=== PATIENT | male | born 1980 | race Caucasian/White ===

== ENCOUNTER → 2023-04-12 09:06 | Outpatient (CLI) | payer OTHER, SELFPAY ==
--- NOTE | 2023-04-12 09:57 | CA_ITS ---
APPROVED REPORT Exam: Exercise Treadmill Technologist: Merary Mills, Ht: 6 ft 1 in Wt: 246 lbs BSA: 2.35 m2 HR: 83 bpm BP: 142/98 mmHg Rhythm: NSR Medical History Medications: Lisinopril,,,,, Stress Test Details Test: Marlon HR Resting HR: 113 bpm Max Heart Rate (APMHR): 175 bpm Max HR Achieved: 158 bpm Target HR (85% APMHR): 149 bpm % of APMHR: 90 Recovery HR: 112 bpm HR response to stress: Normal HR response to stress BP Resting BP: 153.0/103.0 mmHg Max BP: 188.0/88.0 mmHg Recovery BP: 151.0/101.0 mmHg BP response to stress: Normal blood pressure response to stress. ECG Resting ECG: NSR, no ST changes Stress ECG: No change Arrhythmia: PVCs Recovery ECG: No change Recovery Arrhythmia: None Clinical Exercise duration: 05:35 min Highest Stage Achieved: II Exercise capacity: 7.0 METs Overall Exercise Capacity for Age: Poor Stress ECG Conclusion The patient was able to exercise for a total of 5:35 on Marlon Protocol. He has a poor exercise capacity compared to age and sex matched peers. He has a normal HR and BP response to exercise. Max HR: 158 % of PM: 90% Max BP: 188/88 METs: 7.0 Test stopped due to: SOA Symptoms: No CP. Arrhythmias/Ectopy: Rare PVC. ST-T Changes: Normal ST response to exercise. Conclusion: Poor exercise capacity. Normal HR and BP response to exercise. Normal exercise stress test. GXT only (no imaging) Test Summary REST . . . . . . . Sitting REST . . . . . . . Standing REST 04:05 0.0 0.0 113 . 153/103 . . Stage 1 01:00 10.0 1.7 133 . . . . Stage 1 02:00 10.0 1.7 142 . . . . Stage 1 03:00 10.0 1.7 142 . 184/ 90 . . Stage 2 01:00 12.0 2.5 152 . . . . Stage 2 02:00 12.0 2.5 156 . 188/ 88 . . Stage 2 02:35 12.0 2.5 158 . 188/ 88 . Stop exercise at 05:35 RECOVERY 01:00 0.0 0.0 153 . . . . RECOVERY 02:00 0.0 0.0 131 . 161/ 94 . . RECOVERY 03:00 0.0 0.0 120 . 161/ 94 . . RECOVERY 04:00 0.0 0.0 115 . 173/ 89 . . RECOVERY 05:00 0.0 0.0 112 . 151/101 . . RECOVERY 05:19 0.0 0.0 105 . 151/101 . . Electronically signed by : Maryann Boggs, 04/14/2023 17:53:02
== END ==
PROVIDERS: PCP Nurse Practitioner Family; Visit Provider Nurse Practitioner
DX: R06.00 Dyspnea, unspecified (principal); R07.9 Chest pain, unspecified; I10 Essential (primary) hypertension; Z72.0 Tobacco use; Z82.49 Family history of ischemic heart disease and other diseases of the circulatory system
CPT/HCPCS: 93017

== ENCOUNTER → 2023-04-17 12:31 | Outpatient (CLI) | payer OTHER, SELFPAY ==
--- NOTE | 2023-04-17 12:43 | CA_ITS ---
APPROVED REPORT EXAM: Comprehensive 2D, Doppler, and color-flow Echocardiogram [employer] Vault Custodian: Desiree Cotton RVT Ht: 6 ft 0 in Wt: 246lbs BSA: 2.33 BP: 135/91 mmHg Indications: SOA,CP,HTN,SMOKER 2D Dimensions LVOT 2.18 cm (M/F) 1.5-2.5 LA Volume 43.50 mL LA Volume Index 18.67 mL/m2 (M/F) 16-34 M-Mode Dimensions RVDd 1.93 cm (0.9-2.6) LA Diam 2.94 cm (1.9-4.0) LVDd 3.26 cm (3.5-5.7) Ao Diam 2.91 cm (2.0-3.7) LVDs 2.25 cm (3.5-5.7) IVSd 0.86 cm (0.6-1.1) PWd 0.50 cm (0.6-1.1) EF (Teich) 60.00% FS 31.00% EDV (Teich) 42.80 mL TAPSE 2.30 (<1.7) ESV (Teich) 17.10 mL LV Diastology E Decel Time 150.00 (160-240 msec) E/A Ratio 0.6 MED E' 7.60 (< 7 cm/sec) E'/MED E' Ratio 6.25 (>14) LAT E' 11.60 (<10 cm/sec) E/LAT E' Ratio 4.09 (>14) Aortic Valve AO Peak GR. 3.00 mmHg Mitral Valve MV E Max Kaden. 47.00 (40-130 cm/s) MV A Velocity 78.00 (40-130 cm/s) E/A Ratio 0.61 MV Decel. Time 150.00 (160-240 ms) MV PHT 44.00 ms Pulmonary Valve PV Peak Velocity 91.00 (50-150 cm/s) Left Ventricle The left ventricle is normal size. The left ventricular systolic function is normal. The left ventricular ejection fraction is within the normal range. There is increased LV wall thickness. There is mild hypokinesis of the basal anteroseptal LV wall. The left ventricular diastolic function is normal. LVEF is 50-55%. Right Ventricle The right ventricle is normal size. The right ventricular systolic function is normal. Atria The left atrium size is normal. The right atrium size is normal. There is no Doppler evidence of interatrial shunt. Aortic Valve The aortic valve opens well. There is no aortic valvular stenosis. Trace aortic regurgitation. Mitral Valve The mitral valve is normal in structure. No evidence of mitral valve stenosis. There is trace mitral valve regurgitation noted. Tricuspid Valve The tricuspid valve leaflets are thin and pliable. Trace tricuspid regurgitation. RVSP is normal. Pulmonic Valve The pulmonary valve is normal in structure. Trace pulmonic regurgitation. Great Vessels The aortic root is normal in size. IVC is normal in size and collapses >50% with inspiration. Pericardium There is no pericardial effusion. Other Information Study Quality: Adequate Conclusion Normal biventricular systolic function. No significant valvular disease. Electronically signed by : Maryann Boggs, 04/17/2023 19:19:16
== END ==
PROVIDERS: PCP Nurse Practitioner Family; Visit Provider Nurse Practitioner
DX: R06.00 Dyspnea, unspecified (principal); R07.9 Chest pain, unspecified; I10 Essential (primary) hypertension; Z72.0 Tobacco use; Z82.49 Family history of ischemic heart disease and other diseases of the circulatory system
CPT/HCPCS: 93306

== ENCOUNTER → 2023-07-24 15:02 | Outpatient (CLI) | payer OTHER, SELFPAY ==
[2023-07-24 15:38] LABS: Basophils # 0.1 K/mm3 (0-0.2); Basophils % 0.6 % (0.1-2.0); Eosinophils # 0.7 K/mm3 (0.0-0.4); Hematocrit 44.6 % (42.0-52.0); Hemoglobin 15.2 g/dL (14.1-18.0); Lymphocytes # 3.1 K/mm3 (0.7-4.5); Lymphocytes % 27.7 % (10-50); Mean Corpuscular HGB Conc 34.2 g/dL (31.8-35.4); Mean Corpuscular Hemoglobin 31.1 pg (27.0-31.2); Mean Corpuscular Volume 90.9 fl (80-94); Mean Platelet Volume 8.1 fl (7.4-10.4); Monocytes # 0.6 K/mm3 (0.1-1.0); Monocytes % 5.3 % (1.7-9.3); Neutrophils # 6.7 K/mm3 (1.8-7.8); Neutrophils % 60.4 % (37.0-80.0); Platelet Count 291 K/mm3 (142-424); Red Blood Count 4.91 M/mm3 (4.60-6.20)
[2023-07-24 15:58] LABS: Albumin Level 4.4 g/dl (3.5-5.0); Blood Urea Nitrogen 13 mg/dl (9-20); Carbon Dioxide 27 mmol/L (22.0-30.0); Chloride 102 mmol/L (98-107); Estimated Glomerular Filt Rate 51 ml/min (>60); GFR (African American) 61 ML/MIN (>60); Glucose 96 mg/dl (74-100); Phosphorous 3.9 mg/dl (2.5-4.5); Sodium 139 mmol/L (136-145)
[2023-07-24 16:09] LABS: 25-OH Vitamin D, Total 31.6 ng/mL (30-100)
[2023-07-24 16:11] LABS: Intact Parathyroid Hormone 90.8 pg/mL (7.5-53.5)
[2023-07-24 16:14] LABS: Creatinine,Urine Random 70 mg/dL (Not Estab.)
== END ==
PROVIDERS: PCP Nurse Practitioner Family; Visit Provider Internal Medicine Nephrology
DX: N17.9 Acute kidney failure, unspecified (principal); E55.9 Vitamin D deficiency, unspecified; Z68.33 Body mass index [BMI] 33.0-33.9, adult
CPT/HCPCS: 36415; 80069; 82306; 82570; 83970; 84155; 85025

== ENCOUNTER → 2023-08-21 12:59 | Outpatient (CLI) | payer OTHER, SELFPAY ==
--- NOTE | 2023-08-21 13:08 | XR_ITS ---
FINAL REPORT CLINICAL HISTORY: Shortness of breath COMPARISON: None FINDINGS: Two views of the chest were obtained. The heart size and pulmonary vascularity are within normal limits. The mediastinum is normal. No acute pulmonary abnormality is identified. There are multiple calcified granulomas. There is no pneumothorax. The bony thorax is intact. IMPRESSION: No active cardiopulmonary disease. Reviewed, Interpreted and Dictated by Michael White III, MD Transcribed by Gianna Donnelly Authenticated and . [facility]
== END ==
PROVIDERS: PCP Nurse Practitioner Family; Visit Provider Nurse Practitioner Family
DX: R06.00 Dyspnea, unspecified (principal)
CPT/HCPCS: 71046

== ENCOUNTER 2023-12-16 13:01 | Outpatient (CLI) | payer OTHER, SELFPAY ==
[2023-12-16 13:47] LABS: Creatinine,Urine Random 102 mg/dL (Not Estab.)
[2023-12-16 14:02] LABS: Albumin Level 4.1 g/dl (3.5-5.0); Anion Gap 10.3 mEq/L (5-15); Blood Urea Nitrogen 18 mg/dl (9-20); Calcium 9.4 mg/dl (8.4-10.2); Carbon Dioxide 28 mmol/L (22.0-30.0); Chloride 106 mmol/L (98-107); Estimated Glomerular Filt Rate 51 ml/min (>60); GFR (African American) 61 ML/MIN (>60); Glucose 100 mg/dl (74-100); Phosphorous 4.4 mg/dl (2.5-4.5); Potassium 4.3 mmoL/L (3.5-5.1); Sodium 140 mmol/L (136-145)
== END 2023-12-16 23:59 ==
LOC: LAB 13:02
PROVIDERS: PCP Nurse Practitioner Family; Visit Provider Internal Medicine Nephrology
DX: N17.9 Acute kidney failure, unspecified (principal)
CPT/HCPCS: 36415; 80069; 82570

== ENCOUNTER 2023-12-19 15:59 | Outpatient (POV) | payer OTHER, SELFPAY | END 2023-12-19 23:59 | disposition home or self-care (01) | LOC: SC 15:59 | PROVIDERS: Visit Provider Internal Medicine Nephrology | DX: Z00.00 Encounter for general adult medical examination without abnormal findings (principal) ==

== ENCOUNTER 2023-12-27 09:56 | Outpatient (CLI) | payer OTHER, SELFPAY ==
--- NOTE | 2023-12-27 10:05 | XR_ITS ---
FINAL REPORT CLINICAL HISTORY: SOB smoker COMPARISON: 08/21/2023 FINDINGS: TWO-VIEW CHEST The heart size is normal. The mediastinum is normal. Left lung base nodules appear to have central calcification consistent with granulomas. There is no pneumothorax. IMPRESSION: Stable left lung nodules, likely granulomas. Reviewed, Interpreted and Dictated by Michael White III, MD Transcribed by Nathalie Kruse Authenticated and [facility]
== END 2023-12-27 23:59 ==
PROVIDERS: PCP Nurse Practitioner Family; Visit Provider Internal Medicine Pulmonary Disease
DX: R06.02 Shortness of breath (principal)
CPT/HCPCS: 71046

== ENCOUNTER 2024-08-31 08:14 | Outpatient (CLI) | payer OTHER, SELFPAY ==
[2024-08-31 09:07] LABS: Chloride 102 mmol/L (98-107); Potassium 4.1 mmoL/L (3.5-5.1); Sodium 133 mmol/L (136-145)
[2024-08-31 09:10] LABS: Anion Gap 6.1 mEq/L (5-15); Blood Urea Nitrogen 20 mg/dl (9-20); Calcium 9.3 mg/dl (8.4-10.2); Carbon Dioxide 29 mmol/L (22.0-30.0); Estimated Glomerular Filt Rate 47 ml/min (>60); GFR (African American) 57 ML/MIN (>60); Glucose 119 mg/dl (74-100); Phosphorous 4.2 mg/dl (2.5-4.5)
[2024-08-31 09:20] LABS: Creatinine,Urine Random 170 mg/dL (Not Estab.)
[2024-09-01 10:30] LABS: Microscopic, Urine URINE MICROSCOPIC (MICROSCOPIC)
[2024-09-01 10:38] LABS: Hematocrit 47.7 % (42.0-52.0); Hemoglobin 15.4 g/dL (14.1-18.0); Mean Corpuscular HGB Conc 32.2 g/dL (31.8-35.4); Mean Corpuscular Hemoglobin 30.1 pg (27.0-31.2); Mean Corpuscular Volume 93.4 fl (80-94); Platelet Count 382 K/mm3 (142-424); Red Blood Count 5.11 M/mm3 (4.60-6.20); Red Cell Distribution Width 13.9 % (11.5-17.5)
[2024-09-01 10:40] LABS: Appearance,Urine CLEAR (Clear); Bilirubin,Urine Negative (Negative); Blood, Urine TRACE-I (Negative); Color,Urine YELLOW (Yellow); Glucose,Urine (UA) Negative (Negative); Ketones,Urine Negative (Negative); Leukocyte Esterase,Urine Negative (Negative); Nitrate,Urine Negative (Negative); Protein,Urine 1+ (Negative); Urobilinogen,Urine 0.2 EU/dl (0.2)
[2024-09-01 11:05] LABS: Bacteria,Urine Trace /lpf; Squamous Epithelial Cell,Urine Occasional #/hpf (0-5); WBC,Urine Occasional #/hpf (0-3)
== END 2024-08-31 23:59 | disposition home or self-care (01) ==
PROVIDERS: PCP Nurse Practitioner Family; Visit Provider Internal Medicine Nephrology
DX: N18.30 Chronic kidney disease, stage 3 unspecified (principal)
CPT/HCPCS: 36415; 80069; 81001; 82570; 84156; 85027

== ENCOUNTER 2025-07-15 05:33 | Emergency (ER) | payer OTHER, SELFPAY ==
[2025-07-15] VITALS (11 sets, daily range): BP systolic 122–188; BP diastolic 67–109; PULSE 79–101; RESP 12–18; TEMP 36.5–36.7; O2SAT 97–100; BMI 35.2
--- OUTSIDE RECORDS SUMMARY | 2025-07-15 05:42 | XMS_ITS | Clinical Summary ---
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 Active lisinopril 20 MG tabletIndication s:Stage 3 chronic kidney disease, unspecified whether stage 3a or 3b CKD (CMS/HCC),Protei bolivar, unspecified type,Hypertensiv e chronic kidney disease with stage 1 through stage 4 chronic kidney disease, or unspecified chronic kidney disease Take 1 tablet (20 mg) by mouth 1 (one) time each day. 90 tablet 3 Active Active Problems Problem Noted Date Diagnosed Date Severe obesity (BMI 35.0-39.9) with comorbidity 09/04/2024 Chronic kidney disease-mineral and bone disorder (CKD-MBD) 09/04/2024 Stage 3 chronic kidney disease 09/04/2024 Hypertensive chronic kidney disease with stage 1 through stage 4 chronic kidney disease, or unspecified chronic kidney disease 09/04/2024 Arthritis 07/29/2023 Gout 07/29/2023 Hypertension 07/29/2023 Proteinuria, unspecified 07/29/2023 Resolved Problems Problem Noted Date Diagnosed Date Resolved Date Acute kidney failure, unspecified 04/01/2023 06/06/2025 Encounters Date Type Department Care Team Description 07/02/2025 Travel from Last 3 Months Family History Medical History Relation Name Comments Heart disease Father Hypertension Father Cancer Mother Diabetes Mother Heart disease Mother Hyperlipidemia Mother Hypertension Mother Kidney disease Mother Osteoporosis Mother Cancer Paternal Grandfather Relation Name Status Comments Father Mother Paternal Grandfather Social History Tobacco Use Types Packs/Day Years Used Date Smoking Tobacco: Every Day Cigarettes Tobacco Cessation:Ready to Q uit: Yes; Counseling Given: Yes PHQ-2 Answer Date Recorded Patient Health Questionnaire-2 Score 0 12/19/2023 Sex and Gender Information Value Date Recorded Sex Assigned at Not on file Legal Sex Male 1:32 PM EDT Gender Identity Not on file Sexual Orientation Not on file Last Filed Vital Signs Vital Sign Reading Time Taken Comments Blood Pressure 162/96 09/04/2024 11:21 AM EST BP obtained twice the first attempt was 166/100 Pulse 87 09/04/2024 11:21 AM EST Temperature 36.3 C (97.4 F) 09/04/2024 11:21 AM EST Respiratory Rate 18 09/04/2024 11:2 1 AM EST Oxygen Saturation 98% 09/04/2024 11: 21 AM EST Inhaled Oxygen Concentration - - Weight 121 kg (266 lb) 09/04/2024 11:21 AM EST Height 182.9 cm (6') 09/04/2024 11:21 AM EST Body Mass Index 36.08 09/04/2024 11:21 AM EST Plan of Treatment Health Maintenance Due Date Last Done Comments [facility]-HIV Screening 1978 [facility]-Hepatitis C Screening 1978 [facility]-Infant/Child/Adol SDOH Screenings 1978 [facility]- SDOH Screenings 02/23/1996 [facility]-Adult SDOH Screenings 02/23/1996 [facility]-DTaP,Tdap,and Td Vaccine s (1 - Tdap) 1997 [facility]-Hepatitis B Vaccines (1 of 3 - 19+ 3-dose series) 1997 [facility]-Pneumococcal Vaccine: Pediatrics (0 to 5 Years) and At-Risk Patients (6 to 49 Years) (1 of 2 - PCV) 1997 CT Colonography 2023 Colonoscopy 2023 FIT-DNA 2023 FIT 2023 FOBT 2023 Sigmoidoscopy 2023 [facility]-Colorectal Cancer Screening 2023 [facility]-Depression Screening 12/18/2024 12/19/2023 [id number] Vaccine ( season) 2025 01/28/2021 [facility]-Influenza Vaccine (#1) 2025 [facility]-Zoster Vaccines (1 of 2) 02/23/2028 [facility]-Obesity Intervention Completed 024, 12/19/2023, 07/29/2023 HPV Vaccines Aged Out No longer eligi ble based on patient's age to complete this topic [facility]-HIB Vaccines Aged Out No longer e ligible based on patient's age to complete this topic [facility]-Hepatitis A Vaccines Aged Out No longer eligible based on patient's age to complete this topic [facility]-IPV Vaccines Aged Out No longer e ligible based on patient's age to complete this topic [facility]-Rotavirus Vaccines Aged Out No lo nger eligible based on patient's age to complete this topic Insurance [facility] MEDICAID Care Teams Brewery Cellar Worker Relationship Specialty Start Date End Date Pcp, [place] [address] PCP - General Family Medicine 06/30/23
--- OUTSIDE RECORDS SUMMARY | 2025-07-15 05:42 | XMS_ITS | Encounter Summary ---
Author Organization Healthcare Address [address] [place] [address] Care Team Providers Care High Speed Operator Name Role Phone Pcp, No Primary Care Provider Unavailabl e Encounter Details Date Type Department Care Team (Latest Contact Info) Description 07/02/2025 Travel Social History Tobacco Use Types Packs/Day Years Used Date Smoking Tobacco: Every Day Cigarettes PHQ-2 Answer Date Recorded Patient Health Questionnaire-2 Score 0 12/19/2023 Sex and Gender Information Value Date Recorded Sex Assigned at Not on file Legal Sex Male 1:32 PM EDT Gender Identity Not on file Sexual Orientation Not on file documented as of this encounter Plan of Treatment Not on file documented as of this encounter Visit Diagnoses Not on filedocumented in this encounter Additional Health Concerns Assessment Noted Time A fall risk assessment has been complete d for the patient 12/19/2023 3:48 PM EDT A Body Mass Index follow-up plan has been documented for the patient 09/04/2024 12:52 PM EST documented as of this encounter Care Teams High Speed Operator Relationship Specialty Start Date End Date Pcp, [place] [address] PCP - General Family Medicine 06/30/23 documented as of this encounter
--- NOTE | 2025-07-15 05:44 | ECG_ITS ---
APPROVED REPORT Exam: Resting ECG HR:90 bpm ECG Measurements Heart Rate 90 AXES OR 188 P 66 QRSd 96 QRS 30 QT 340 T 39 QTc 388 Conclusion SINUS RHYTHM NONSPECIFIC T-WAVE ABNORMALITY No STEMI Electronically signed by : BRENDON SONG, 07/17/2025 06:19:37
--- NOTE | 2025-07-15 05:54 | XR_ITS ---
PROCEDURE INFORMATION: Exam: XR Chest Exam date and time: 07/15/2025 5:51 AM Age: 45 years old Clinical indication: Shortness of breath; Additional info: SOA, orthopnea TECHNIQUE: Imaging protocol: Radiologic exam of the chest. Views: 2 views. COMPARISON: CR XR CHEST 2V 12/27/2023 10:12 AM FINDINGS: Lungs: No lobar consolidation. Left lower lung field calcified granulomata. Pleural spaces: No pleural thickening or pneumothorax. Heart/Mediastinum: Cardiac silhouette not enlarged. Bones/joints: Unremarkable. IMPRESSION: No acute findings.
[2025-07-15 06:02] LABS: Lactate Venous 2.0 mmol/L (0.4-2.0); VBG HCO3 23.9 mmol/L (23-30); VBG PCO2 51.5 mmol/L (35-51); VBG PH 7.28 mmol/L (7.31-7.41); VBG PO2 26.4 mmol/L (28-40)
--- NOTE | 2025-07-15 06:02 | ED_ITS ---
Discharge Plan Disposition Patient Disposition: Home, Self-Care Prescriptions Prescriptions: New azithromycin 250 mg tablet See Rx Instructions .ROUTE .COMPLEX Qty: 6 0RF Rx Instructions: For 250 mg dose pack: take 500 mg today (day 1), then 250 mg for 4 days (days 2-5) prednisone 20 mg tablet 40 mg PO DAILY 5 Days Qty: 10 0RF No Action lisinopril 10 mg tablet 10 mg PO DAILY buprenorphine-naloxone [Suboxone] 8-2 mg film 1 film buccal DAILY albuterol sulfate [Ventolin HFA] 90 mcg/actuation HFA aerosol inhaler 2 puff inhalation Q4-6H PRN albuterol sulfate 90 mcg/actuation HFA aerosol inhaler 2 inh inhalation QID PRN (Reason: shortness of breath or wheezing) 90 Days Qty: 8.5 2RF Referrals Follow up/Referrals: Provider,Referral, [Primary Care Provider, Medical] - See instructions Activity Restrictions/Add. Instructions Additional Instructions/Restrictions: I encourage you to follow up with Dr. Camejo, the tire mounter you have seen previously, regarding your shortness of breath. Use the albuterol inhaler as directed. You are being prescribed a short course of steroids as well as a Z- Ector. Take these as prescribed. I do encourage you to follow-up with your primary care doctor as your kidney function is slightly worse than previous and they would likely need to do follow-up labs. If you develop any new or worsening symptoms, or if you become concerned for your health for any reason, return to the emergency department for evaluation. Clinical Impressions Clinical Impression: Shortness of breath Print Language Print Language: Martiniquais Discharge ED Provider: Jcarlos Estrella HPI <Jcarlos Estrella MD - Last Filed: 07/15/25 06:52> General Chief Complaint: Shortness of Breath/Dyspnea Stated Complaint: trouble breathing laying down, history of pluracy Time Seen by Provider: 07/15/25 05:54 Mode of Arrival: Ambulatory Source of Information: Patient Description of Symptoms (Recalled from ER Triage Doc. by RN): PT presents tot he ED for evaluation of SOB. Stated he woke up from sleep sob admin his inhaler and walked around, took a drive went back home and laid [place]. PT stated he became SOB when laying down. PT denies a hx of COPD. Stated he has been congested for a little bit. History of Present Illness HPI narrative: 45-year-old male with history of smoking who states he occasionally uses an inhaler and reportedly had pleurisy once in the past presents to the ER for complaints of shortness of breath. Patient reports he woke up approximately 3- 1/2 hours prior to arrival from sleep with shortness of breath. He states he used his inhaler (albuterol) and walked around, took a drive, and went back and lay down. He states he was feeling well until he laid back down and the shortness of breath was worse again when he laid down. He does not have any swelling in the feet or legs, he reports chest discomfort but not pain or pressure. He states he had pleurisy a couple years ago and that the breathing sensation feels similar but he does not particularly have pain which he thinks he had when he had pleurisy in the past. He has no fevers or chills, no vomiting or diarrhea, he states the last few days he has had increased nasal and sinus congestion as well as productive cough and is taking Mucinex for this. Family cardiac history. Besides albuterol the only other medication he takes is Suboxone. No other complaints or concerns Related Data Home Medications ?Medication ?Instructions ?Recorded ?Confirmed lisinopril 10 mg tablet 10 mg PO DAILY 04/03/2312/15 albuterol sulfate 90 mcg/actuation 2 puff inhalation Q 4-6H PRN 10/18/23 12/27/23 aerosol inhaler (Ventolin HFA) buprenorphine 8 mg-naloxone 2 mg 1 film buccal DAILY 0 10/18/23 12/27/23 sublingual film (Suboxone) Previous Rx's ?Medication ?Instructions ?Recorded albuterol sulfate 90 mcg/actuation 2 inh inhalation QI D PRN shortness 10/18/23 aerosol inhaler of breath or wheezing 90 day s #8.5 grams azithromycin 250 mg tablet See Rx Instructions PO .COM PLEX #6 07/15/25 tabs prednisone 20 mg tablet 40 mg (2 x 20 mg) PO DAILY 5 days 07/15/25 #10 tabs Allergies Allergy/AdvReac Type Severity Reaction Status Date / Time Penicillins Allergy Intermediate Vomiting Verified 12/27/23 11:12 [facility] <Jcarlos Estrella MD - Last Filed: 07/15/25 06:52> [facility] Disclaimer: The information contained in this section may have been updated after the patient was seen, as this information can be updated by other users. Medical History Dyspnea on exertion Smoking greater than 30 pack years HTN (hypertension) Tobacco use Family history of ischemic heart disease Dyspnea Chest pain Surgical History No history of previous surgery Family History Mother Diabetes Hypertension Heart attack Father Hypertension Social History Smoking Status: Current every day smoker tobacco type: cigarettes packs per day: 1 alcohol intake: never current occupational status: employed Travel in the last 8 weeks?: None Have you lived/traveled outside US in past 30 days?: No Contact w/someone who lives/traveled outside US past 30 days?: No Exposure to someone with infectious disease in past 14 days?: No Do you have a fever (greater than 100.4 F or 38 C)?: No Have you tested positive for COVID-19?: No Exposed to someone with COVID-19 in past 14 days?: No Do you have a sore throat?: No Do you have a cough?: No Do you have any weakness?: No Do you have any diarrhea?: No Are you experiencing any unusual bleeding?: No Do you have any muscle aches/pain?: No Do you have any abdominal pain?: No Are you experiencing loss of taste or smell?: No <Jcarlos Estrella MD - Last Filed: 07/15/25 06:52> ROS Obtained: Yes Systems reviewed as appropriate & no additional complaints except as documented Per HPI Physical Exam <Jcarlos Estrella MD - Last Filed: 07/15/25 06:52> General General appearance: alert and in no apparent distress Head Head exam: atraumatic and normocephalic Eye Eye exam: Present PERRL and EOMI ENT ENT exam: Present mucous membranes moist Neck Neck exam: Present normal inspection and full ROM Chest Chest inspection: Present symmetric chest wall rise; Absent tenderness Respiratory Respiratory exam: Present normal lung sounds bilaterally and other (95% on room air with no adventitious sounds); Absent respiratory distress, wheezes or stridor Cardiovascular Cardiovascular exam: Present regular rate and normal rhythm Abdominal Exam Abdominal exam: Present soft; Absent distention or tenderness Extremities Exam Extremities exam: Present full ROM and normal capillary refill; Absent edema Neurological Exam Neurological exam: Present alert and oriented X3; Absent motor sensory deficit Psychiatric Psychiatric exam: Present normal affect and normal mood Skin Skin exam: Present warm and dry HEART Score <Jcarlos Estrella MD - Last Filed: 07/15/25 06:52> HEART Score HEART Score assessment performed?: Yes History (anamnesis): Slightly suspicious ECG: Non-specific disturbance Age: 45-65 years Risk factors: 1-2 risk factors Troponin: </= normal limit HEART Score: 3 <Misbah Morse MD - Last Filed: 07/15/25 09:10> HEART Score HEART Score: 3 Critical Care <Jcarlos Estrella MD - Last Filed: 07/15/25 06:52> Critical Care Time Critical Care Time: No Medical Decision Making <Jcarlos Estrella MD - Last Filed: 07/15/25 06:52> Medical Records Medical records reviewed: Yes I reviewed the patient's medical records. MR Comment: Reviewed pulmonology note from December 2023 demonstrates patient refused PFT, continued to use albuterol on an as needed basis a few times a month and continued to smoke. Plan was for follow-up in 6 months because patient still had complaints of dyspnea on exertion but it appears patient was lost to follow-up. Kermit Inquiry Pt receiving controlled substance: No Vital Signs Vital Signs: 07/15/25 05:43 07/15/25 05:48 07/15/25 05:51 Temperature 97.7 F 97.7 F Temperature Source Oral Pulse Rate 90 Pulse Rate [Right] 101 H Respiratory Rate 16 16 Blood Pressure 156/109 H Blood Pressure [Right Arm] 188/107 H Blood Pressure Mean [Right Arm] 134 02 Sat by Pulse Oximetry 99 97 99 Oxygen Delivery Method Room Air Room Air Room Air 07/15/25 06:00 07/15/25 06:31 07/15/25 06:50 Temperature Temperature Source Pulse Rate 91 H 79 81 Pulse Rate [Right] Respiratory Rate 15 17 Blood Pressure 169/95 H 139/87 139/87 Blood Pressure [Right Arm] Blood Pressure Mean [Right Arm] 02 Sat by Pulse Oximetry 98 97 99 Oxygen Delivery Method Aerosol Mask 07/15/25 07:01 07/15/25 07:30 07/15/25 08:00 Temperature Temperature Source Pulse Rate 80 93 H 85 Pulse Rate [Right] Respiratory Rate 14 16 12 Blood Pressure 147/77 H 123/76 130/67 Blood Pressure [Right Arm] Blood Pressure Mean [Right Arm] 02 Sat by Pulse Oximetry 100 100 100 Oxygen Delivery Method 07/15/25 08:30 Temperature Temperature Source Pulse Rate 84 Pulse Rate [Right] Respiratory Rate 13 Blood Pressure 122/72 Blood Pressure [Right Arm] Blood Pressure Mean [Right Arm] 02 Sat by Pulse Oximetry 97 Oxygen Delivery Method Lab Data Labs: Lab Results 07/15/25 05:41: WBC 10.7, RBC 5.14, Hgb 15.3, Hct 45.6, MCV 88.7, MCH 29.8, MCHC 33.6, RDW 13.8, Plt Count 357, MPV 9.1, Neut % (Auto) 68.0, Lymph % (Auto) 23.3, [place] % (Auto) 5.6, Eos % (Auto) 1.5, Baso % (Auto) 0.5, Neut # (Auto) 7.3, Lymph # (Auto) 2.5, [place] # (Auto) 0.6, Eos # (Auto) 0.2, Baso # (Auto) 0.1, PT 10.5, INR 0.94, D-Dimer 0.79 H, Sodium 138, Potassium 3.7, Chloride 103, Carbon Dioxide 26, Anion Gap 12.7, BUN 23 H, Creatinine 1.70 H, Estimated Creat Clear 90, Estimated GFR 43 L, Est GFR ( Amer) 53 L, Glucose 129 H, Calcium 9.3, Total Bilirubin 0.2, AST 29, ALT 21, Alkaline Phosphatase 104, Troponin I < 0.01, NT-Pro-B Natriuret Pep < 20.0, Total Protein 8.4 H, Albumin 3.8, Globulin 4.6 H, Albumin/Globulin Ratio 0.8 L, HCV Ab JAYANT w/Rflx PCR Qn Negative, HIV Ag/Ab Combo Qual Negative 07/15/25 05:57: VBG pH 7.28 L, VBG pCO2 51.5 H, VBG pO2 26.4 L, VBG HCO3 23.9, VBG Total CO2 25.5, VBG O2 Saturation 45.4 L, VBG Base Excess -2.8 L, VBG Lactic Acid 2.0 07/15/25 05:59: SARS-CoV-2 (PCR) Not detected, Influenza A Untype (PCR) Not detected, Influenza Type B (PCR) Not detected 07/15/25 08:23: Troponin I < 0.01 07/15/25 05:41 07/15/25 05:41 Response Orders (Tests/Meds): ED MEDICATIONS Generic Name Dose Route Start Last Admin Trade Name Freq PRN Reason Stop Dose Admin Albuterol Sulfate 2 puff 07/15/25 07:58 Albuterol-Hfa 90mcg/Puff Inhaler 8gm IH 08/14/25 07:57 Q4HP PRN Shortness Of Breath Discontinued Medications Generic Name Dose Route Start Last Admin Trade Name Freq PRN Reason Stop Dose Admin Albuterol/Ipratropium 9 ml 07/15/25 06:20 07/15/25 06:48 Ipratropium/Albuterol 3 Ml Neb IH 07/15/25 06:21 9 ml ONCE ONE Administration Aspirin 324 mg 07/15/25 05:54 07/15/25 06:08 Aspirin 81mg Chewable Tablet PO 07/15/25 05:55 324 mg ONCE ONE Administration Miscellaneous 1 unit 07/15/25 07:58 Aerochamber/Optihaler MC 07/15/25 07:59 ONCE ONE ORDERS Category Date Time Status XR chest 2V Stat Exams 07/15/25 05:54 Completed Complete Blood Count Auto Diff Stat Lab 07/15/25 05:41 Completed Comprehensive Metabolic Panel Stat Lab 07/15/25 05:41 Completed D-Dimer Stat Lab 07/15/25 05:41 Completed HIV Combo Stat Lab 07/15/25 05:41 Completed Hepatitis C Ab Qual. W/ RFX Stat Lab 07/15/25 05:41 Completed NT Pro Brain Natriuretic Pep. Stat Lab 07/15/25 05:41 Completed Prothrombin Time INR Stat Lab 07/15/25 05:41 Completed Rapid PCR Covid and Flu A/B Stat Lab 07/15/25 05:59 Completed Troponin I Q3H Lab 07/15/25 08:23 Completed Troponin I Q3H Lab 07/15/25 12:00 Ordered Troponin I Stat Lab 07/15/25 05:41 Completed Venous Blood Gas Stat RT 07/15/25 05:57 Completed MDM Narrative Medical Decision Narrative: In summary, this 45-year-old male with comorbidities and social determinants of health as described in the HPI presents to the emergency department today with cough, shortness of breath, orthopnea. On initial evaluation patient is tachycardic when I walked in the room but heart rate resolved to 87 during my exam, hemodynamically stable, afebrile, lungs are clear bilaterally with no adventitious sounds saturating 95% on room air, no chest wall tenderness, no evidence of trauma, cardiopulmonary exam overall is benign with no peripheral edema, abdominal exam benign, remainder of exam reassuring. Differential diagnosis includes but is not limited to COPD/exacerbation, bronchitis, pneumonia, I considered ACS, volume overload, PE. Patient is not PERC negative since he was initially tachycardic so D-dimer was ordered. I also considered viral syndrome, pleural effusion, among others. Based on these concerns, I ordered hematologic and serum labs, cardiac workup, D-dimer, chest x-ray, VBG. ECG personally interpreted demonstrates normal sinus rhythm, rate 90, normal axis, normal AK and QTc, no STEMI. Patient received aspirin initially for treatment. Labs personally reviewed demonstrate normal CBC, PT/INR normal, VBG with pH 7.28, mild hypercarbia, normal lactic. With these findings DuoNebs administered. BNP undetectable, troponin undetectable less than 0.01, CMP demonstrates normal electrolytes, kidney function pending at the time of physician handoff. D-dimer 0.79 by years criteria PE excluded. XR personally interpreted demonstrates no lobar infiltrate, patient appears to have 2 small nodules which have previously been present, see radiology read for final interpretation. Patient handed off to Dr. Morse in stable condition pending serial troponin, kidney function labs, reassessment after nebulizer treatments. <Misbah Morse MD - Last Filed: 07/15/25 09:10> Vital Signs Vital Signs: 07/15/25 05:43 07/15/25 05:48 07/15/25 05:51 Temperature 97.7 F 97.7 F Temperature Source Oral Pulse Rate 90 Pulse Rate [Right] 101 H Respiratory Rate 16 16 Blood Pressure 156/109 H Blood Pressure [Right Arm] 188/107 H Blood Pressure Mean [Right Arm] 134 02 Sat by Pulse Oximetry 99 97 99 Oxygen Delivery Method Room Air Room Air Room Air 07/15/25 06:00 07/15/25 06:31 07/15/25 06:50 Temperature Temperature Source Pulse Rate 91 H 79 81 Pulse Rate [Right] Respiratory Rate 15 17 Blood Pressure 169/95 H 139/87 139/87 Blood Pressure [Right Arm] Blood Pressure Mean [Right Arm] 02 Sat by Pulse Oximetry 98 97 99 Oxygen Delivery Method Aerosol Mask 07/15/25 07:01 07/15/25 07:30 07/15/25 08:00 Temperature Temperature Source Pulse Rate 80 93 H 85 Pulse Rate [Right] Respiratory Rate 14 16 12 Blood Pressure 147/77 H 123/76 130/67 Blood Pressure [Right Arm] Blood Pressure Mean [Right Arm] 02 Sat by Pulse Oximetry 100 100 100 Oxygen Delivery Method 07/15/25 08:30 Temperature Temperature Source Pulse Rate 84 Pulse Rate [Right] Respiratory Rate 13 Blood Pressure 122/72 Blood Pressure [Right Arm] Blood Pressure Mean [Right Arm] 02 Sat by Pulse Oximetry 97 Oxygen Delivery Method Lab Data Labs: Lab Results 07/15/25 05:41: WBC 10.7, RBC 5.14, Hgb 15.3, Hct 45.6, MCV 88.7, MCH 29.8, MCHC 33.6, RDW 13.8, Plt Count 357, MPV 9.1, Neut % (Auto) 68.0, Lymph % (Auto) 23.3, [place] % (Auto) 5.6, Eos % (Auto) 1.5, Baso % (Auto) 0.5, Neut # (Auto) 7.3, Lymph # (Auto) 2.5, [place] # (Auto) 0.6, Eos # (Auto) 0.2, Baso # (Auto) 0.1, PT 10.5, INR 0.94, D-Dimer 0.79 H, Sodium 138, Potassium 3.7, Chloride 103, Carbon Dioxide 26, Anion Gap 12.7, BUN 23 H, Creatinine 1.70 H, Estimated Creat Clear 90, Estimated GFR 43 L, Est GFR ( Amer) 53 L, Glucose 129 H, Calcium 9.3, Total Bilirubin 0.2, AST 29, ALT 21, Alkaline Phosphatase 104, Troponin I < 0.01, NT-Pro-B Natriuret Pep < 20.0, Total Protein 8.4 H, Albumin 3.8, Globulin 4.6 H, Albumin/Globulin Ratio 0.8 L, HCV Ab JAYANT w/Rflx PCR Qn Negative, HIV Ag/Ab Combo Qual Negative 07/15/25 05:57: VBG pH 7.28 L, VBG pCO2 51.5 H, VBG pO2 26.4 L, VBG HCO3 23.9, VBG Total CO2 25.5, VBG O2 Saturation 45.4 L, VBG Base Excess -2.8 L, VBG Lactic Acid 2.0 07/15/25 05:59: SARS-CoV-2 (PCR) Not detected, Influenza A Untype (PCR) Not detected, Influenza Type B (PCR) Not detected 07/15/25 08:23: Troponin I < 0.01 Response Orders (Tests/Meds): ED MEDICATIONS Generic Name Dose Route Start Last Admin Trade Name Freq PRN Reason Stop Dose Admin Albuterol Sulfate 2 puff 07/15/25 07:58 Albuterol-Hfa 90mcg/Puff Inhaler 8gm IH 08/14/25 07:57 Q4HP PRN Shortness Of Breath Discontinued Medications Generic Name Dose Route Start Last Admin Trade Name Freq PRN Reason Stop Dose Admin Albuterol/Ipratropium 9 ml 07/15/25 06:20 07/15/25 06:48 Ipratropium/Albuterol 3 Ml Neb IH 07/15/25 06:21 9 ml ONCE ONE Administration Aspirin 324 mg 07/15/25 05:54 07/15/25 06:08 Aspirin 81mg Chewable Tablet PO 07/15/25 05:55 324 mg ONCE ONE Administration Miscellaneous 1 unit 07/15/25 07:58 Aerochamber/Optihaler MC 07/15/25 07:59 ONCE ONE ORDERS Category Date Time Status XR chest 2V Stat Exams 07/15/25 05:54 Completed Complete Blood Count Auto Diff Stat Lab 07/15/25 05:41 Completed Comprehensive Metabolic Panel Stat Lab 07/15/25 05:41 Completed D-Dimer Stat Lab 07/15/25 05:41 Completed HIV Combo Stat Lab 07/15/25 05:41 Completed Hepatitis C Ab Qual. W/ RFX Stat Lab 07/15/25 05:41 Completed NT Pro Brain Natriuretic Pep. Stat Lab 07/15/25 05:41 Completed Prothrombin Time INR Stat Lab 07/15/25 05:41 Completed Rapid PCR Covid and Flu A/B Stat Lab 07/15/25 05:59 Completed Troponin I Q3H Lab 07/15/25 08:23 Completed Troponin I Q3H Lab 07/15/25 12:00 Ordered Troponin I Stat Lab 07/15/25 05:41 Completed Venous Blood Gas Stat RT 07/15/25 05:57 Completed MDM Narrative Medical Decision Narrative: In summary, this 45-year-old male with comorbidities and social determinants of health as described in the HPI presents to the emergency department today with cough, shortness of breath, orthopnea. On initial evaluation patient is tachycardic when I walked in the room but heart rate resolved to 87 during my exam, hemodynamically stable, afebrile, lungs are clear bilaterally with no adventitious sounds saturating 95% on room air, no chest wall tenderness, no evidence of trauma, cardiopulmonary exam overall is benign with no peripheral edema, abdominal exam benign, remainder of exam reassuring. Differential diagnosis includes but is not limited to COPD/exacerbation, bronchitis, pneumonia, I considered ACS, volume overload, PE. Patient is not PERC negative since he was initially tachycardic so D-dimer was ordered. I also considered viral syndrome, pleural effusion, among others. Based on these concerns, I ordered hematologic and serum labs, cardiac workup, D-dimer, chest x-ray, VBG. ECG personally interpreted demonstrates normal sinus rhythm, rate 90, normal axis, normal AK and QTc, no STEMI. Patient received aspirin initially for treatment. Labs personally reviewed demonstrate normal CBC, PT/INR normal, VBG with pH 7.28, mild hypercarbia, normal lactic. With these findings DuoNebs administered. BNP undetectable, troponin undetectable less than 0.01, CMP demonstrates normal electrolytes, kidney function pending at the time of physician handoff. D-dimer 0.79 by years criteria PE excluded. XR personally interpreted demonstrates no lobar infiltrate, patient appears to have 2 small nodules which have previously been present, see radiology read for final interpretation. Patient handed off to Dr. Morse in stable condition pending serial troponin, kidney function labs, reassessment after nebulizer treatments. Misbah Morse MD At the time my assumption of care, plan was to follow-up serial troponins, renal function testing and reassessment after nebulizer treatments Ultimately, patient's workup showed creatinine of 1.7, which is mildly above his baseline of 1.5. Initial troponin less than 0.01. EKG interpreted by me personally shows no ST elevation or depression and normal sinus rhythm. Chest x-ray was interpreted by me personally. Patient does have granulomata noted on AP and lateral x-rays, however these appear chronic. No focal consolidations or other acute findings. Patient receiving breathing treatment at the time of my arrival. On reassessment, patient has had improvement of his symptoms. Will prescribe albuterol MDI inhaler for him to take home. Will also prescribe course of steroids and azithromycin for increased productive cough. Repeat troponin also negative. Will also recommend follow-up with Dr. Camejo, whom the patient has seen previously. Return precautions were given. All questions were answered. He demonstrated understanding and was in agreement with this plan. He was then discharged from the emergency department in stable condition.
--- NOTE | 2025-07-15 06:02 | PC.NURSE ---
Contacted respiratory r/t VBG sent to lab.
[2025-07-15 06:04] LABS: Hematocrit 45.6 % (42.0-52.0); Hemoglobin 15.3 g/dL (14.1-18.0); Immature Granulocytes % 1.1 %; Mean Corpuscular HGB Conc 33.6 g/dL (31.8-35.4); Mean Corpuscular Hemoglobin 29.8 pg (27.0-31.2); Mean Corpuscular Volume 88.7 fl (80-94); Nucleated Red Blood Cells % 0 %; Platelet Count 357 K/mm3 (142-424); Red Blood Count 5.14 M/mm3 (4.60-6.20); Red Cell Distribution Width-SD 44.8 fL; White Blood Count 10.7 K/mm3 (4.8-10.8)
[2025-07-15 06:05] LABS: Coronavirus 19, PCR Not Detected (NotDetected); Influenza A, PCR Not Detected (NotDetected); Influenza B, PCR Not Detected (NotDetected)
[2025-07-15 06:05] LABS: Chloride 103 mmol/L (98-107)
[2025-07-15 06:06] LABS: Albumin Level 3.8 g/dl (3.5-5.0); Potassium 3.7 mmoL/L (3.5-5.1); Sodium 138 mmol/L (136-145)
[2025-07-15] MEDS: ASPIRIN 81MG CHEWABLE TABLET 324 MG PO (06:08)
[2025-07-15 06:09] LABS: Alanine Aminotransferase 21 U/L (12-78); Albumin/Globulin Ratio 0.8 (1.1-1.8); Alkaline Phosphatase 104 U/L (38-126); Anion Gap 12.7 mEq/L (5-15); Aspartate Amino Transferase 29 U/L (17-59); Bilirubin,Total 0.2 mg/dl (0.2-1.3); Calcium 9.3 mg/dl (8.4-10.2); Carbon Dioxide 26 mmol/L (22.0-30.0); Globulin 4.6 g/dL (1.3-3.2); Glucose 129 mg/dl (74-100); Total Protein,Serum 8.4 g/dl (6.3-8.2)
[2025-07-15 06:11] LABS: INR 0.94 (0.9-1.1); Prothrombin Time 10.5 seconds (10.1-12.5)
[2025-07-15 06:19] LABS: NT Pro Brain Natriuretic Pep. < 20.0 pg/mL (0-125)
[2025-07-15 06:21] LABS: Troponin I < 0.01 ng/ml (0.00-0.034)
[2025-07-15 06:23] LABS: D-Dimer 0.79 ug/mL (0.0-0.5)
[2025-07-15 06:48] LABS: Blood Urea Nitrogen 23 mg/dl (9-20); Creatinine Clearance Estimated 90 mL/min (50-200); Creatinine,Serum 1.70 mg/dl (0.66-1.25); Estimated Glomerular Filt Rate 43 ml/min (>60); GFR (African American) 53 ML/MIN (>60)
[2025-07-15] MEDS: IPRATROPIUM/ALBUTEROL 3 ML NEB 9 ML IH (06:48)
[2025-07-15 06:57] LABS: Hepatitis C Ab Qual. W/ RFX NEGATIVE (Negative)
--- NOTE | 2025-07-15 07:05 | PC.NURSE ---
pt is sitting up in bed. tolerating breathing treatment well.l denies any SOA @ this time. no chest pain.
--- NOTE | 2025-07-15 08:34 | PC.NURSE ---
call made to respiratory for d/c instructions on aerochamber and inhaler.
[2025-07-15 09:06] LABS: Troponin I < 0.01 ng/ml (0.00-0.034)
[2025-07-15] MEDS: AEROCHAMBER/OPTIHALER 1 UNIT MC (09:33)
[2025-07-15] MEDS: ALBUTEROL-HFA 90MCG/PUFF INHALER 8GM 2 PUFF IH (09:33)
== END 2025-07-15 09:42 | disposition home or self-care (01) ==
PROVIDERS: Emergency Provider Emergency Medicine
DX: R06.02 Shortness of breath (principal); R79.1 Abnormal coagulation profile; I10 Essential (primary) hypertension; Z87.891 Personal history of nicotine dependence
CPT/HCPCS: 71046; 80053; 82803; 83880; 84484; 85025; 85378; 85610; 86803; 87389; 87636; 93005; 99284; 99285

== ENCOUNTER 2025-07-25 09:57 | Emergency (ER) | payer OTHER, SELFPAY ==
[2025-07-25] VITALS (12 sets, daily range): BP systolic 121–161; BP diastolic 76–116; PULSE 73–100; RESP 12–18; TEMP 37.1; O2SAT 95–99; BMI 35.2
--- NOTE | 2025-07-25 10:05 | ECG_ITS ---
APPROVED REPORT Exam: Resting ECG HR:89 bpm ECG Measurements Heart Rate 89 AXES CA 184 P 64 QRSd 85 QRS 28 QT 338 T 13 QTc 384 Conclusion SINUS RHYTHM NORMAL ECG UNCONFIRMED REPORT Electronically signed by : SYBIL GUILLEN, 07/26/2025 02:49:16
--- OUTSIDE RECORDS SUMMARY | 2025-07-25 10:05 | XMS_ITS | Encounter Summary ---
Author Organization Healthcare Address [address] [place] [address] Care Team Providers Care Network Operations Center Technician Name Role Phone Pcp, No Primary Care [...] documented as of this encounter Care Teams Network Operations Center Technician Relationship Specialty Start Date End Date Pcp, [place] [address] PCP - General Family Medicine 06/30/23 documented as of this encounter
--- OUTSIDE RECORDS SUMMARY | 2025-07-25 10:05 | XMS_ITS | Data Portability ---
Author Organization Replaced by [facility] Address [address] [place] [address] Care Team Providers Care Weighmaster Lead Name Role Phone ALOK CASEYDEXTERElaina Primary Care Provider Assessment No assessment recorded. Plan of Treatment Reminders Order Date Submit Date Provider Last Modified By Organization Details Last Modified Time Details Appointments None recorded. Lab None recorded. Referral pulmonologi st referral 2022 023 CESAR Camejo MD, [address], [place], [address], 4 13:36:29 Procedures venipunctur e routine (PROC) 2022 023 brice Not available 3 09:40:24 Surgeries None recorded. Imaging XR, chest, 2 view 2022 023 [facility] ([facility]), [address], [place], [address], 3 15:44:45 Medication Orders dexamethaso ne sodium phosphate 4 mg/mL injection solution 2024 025 bstears Not available 5 14:16:34 prednisone 20 mg tablet 2024 025 brice [facility], [address] [place], [address], 5 13:44:17 doxycycline hyclate 100 mg capsule 2024 025 CESAR [facility], [address] [place], [address], 5 05:01:48 nicotine 21 mg/24 hr daily transdermal patch 2022 023 brice [facility], [address] [place], [address], 5 15:43:43 Zithromax Z-Ector 250 mg tablet 2022 023 [facility], [address] [place], [address], 5 15:37:17 dexamethaso ne sodium phosphate 4 mg/mL injection solution 2022 023 brice Not available 5 15:37:28 albuterol sulfate HFA 90 mcg/actuati on aerosol inhaler 2022 023 CESAR [facility], [address] [place], [address], 3 09:13:40 lisinopril 10 mg tablet 2022 023 [facility], [address] [place], [address], 5 15:43:25 Patient TargetsNo targets recorded. Patient Instructions Encounter Date Encounter Id Patient Instructions Last Modified By Organization Details Last Modified Time 08/19/2023 [id number] smoking cessatio n counseling, greater than 3 minutes up to 10 minutes efryman Not available 08/19/2023 09:13:02 Learning About Benefits of Quitting Smoking efryman Not available 08/19/2023 09:13:02 complete PFT w/ post bronchodilator spirometry* bstears Not available 10/15/2023 14:41:30 Reason for Referral Licensed Physical Therapy Assistant Referral for D yspnea Referring Physician: Shawn Rahman, Family Medicine, Encounter Date: 08/19/2023 Results Created Date Observation Date Name Description Value Unit Range Abnormal Flag Note LastModifiedBy Organization Detail LastModifiedTime 03/26/2003/27/2023 TSH+F REE T4 TSH 2.530 uIU/m L 0.450- 4.500 Not Available [facility] ([facility]) [address], [place], [address], 03/27/2023 13:07:26 03/26/20 23 03/27/2023 TSH+F REE T4 T4,free(dire ct) 1.22 NG/dL 0.82-1 .77 Not Available [facility] ([facility]) [address], [place], [address], 03/27/2023 13:07:26 03/26/20 23 03/27/2023 CBC WITH DIFFE RENTI AL/PL ATELE T WBC 9.0 x10e3 /uL 3.4-10 .8 Not Available [facility] ([facility]) [address] [place], [address], 03/27/2023 13:07:26 03/26/20 23 03/27/2023 CBC WITH DIFFE RENTI AL/PL ATELE T RBC 5.11 x10e6 /uL 4.14-5 .80 Not Available [facility] ([facility]) [address] [place], [address], 03/27/2023 13:07:26 03/26/20 23 03/27/2023 CBC WITH DIFFE RENTI AL/PL ATELE T hemoglobin 15.1 g/dL 13.0-1 7.7 Not Available [facility] ([facility]) [address] [place], [address], 03/27/2023 13:07:26 03/26/20 23 03/27/2023 CBC WITH DIFFE RENTI AL/PL ATELE T hematocrit 44.3 % 37.5-5 1.0 Not Available [facility] ([facility]) [address] [facility], [place], [address], 03/27/2023 13:07:26 03/26/20 23 03/27/2023 CBC WITH DIFFE RENTI AL/PL ATELE T MCV 87 fL 79-97 Not Available [facility] ([facility]) [address], [place], [address], 03/27/2023 13:07:26 03/26/20 23 03/27/2023 CBC WITH DIFFE RENTI AL/PL ATELE T MCH 29.5 pg 26.6-3 3.0 Not Available [facility] ([facility]) [address], [place], [address], 03/27/2023 13:07:26 03/26/20 23 03/27/2023 CBC WITH DIFFE RENTI AL/PL ATELE T MCHC 34.1 g/dL 31.5-3 5.7 Not Available [facility] ([facility]) [address], [place], [address], 03/27/2023 13:07:26 03/26/20 23 03/27/2023 CBC WITH DIFFE RENTI AL/PL ATELE T RDW 13.3 % 11.6-1 5.4 Not Available [facility] ([facility]) [address] [place], [address], 03/27/2023 13:07:26 03/26/20 23 03/27/2023 CBC WITH DIFFE RENTI AL/PL ATELE T platelets 375 x10e3 /uL 150-45 0 Not Available [facility] ([facility]) [address] [place], [address], 03/27/2023 13:07:26 03/26/20 23 03/27/2023 CBC WITH DIFFE RENTI AL/PL ATELE T neutrophils 69 % not estab. Not Available [facility] ([facility]) [address] [place], [address], 03/27/2023 13:07:26 03/26/20 23 03/27/2023 CBC WITH DIFFE RENTI AL/PL ATELE T lymphs 24 % not estab. Not Available [facility] ([facility]) [address] [facility], [place], [address], 03/27/2023 13:07:26 03/26/20 23 03/27/2023 CBC WITH DIFFE RENTI AL/PL ATELE T monocytes 6 % not estab. Not Available [facility] ([facility]) [address], [place], [address], 03/27/2023 13:07:26 03/26/20 23 03/27/2023 CBC WITH DIFFE RENTI AL/PL ATELE T eos 1 % not estab. Not Available [facility] ([facility]) [address], [place], [address], 03/27/2023 13:07:26 03/26/20 23 03/27/2023 CBC WITH DIFFE RENTI AL/PL ATELE T basos 0 % not estab. Not Available [facility] ([facility]) [address], [place], [address], 03/27/2023 13:07:26 03/26/20 23 03/27/2023 CBC WITH DIFFE RENTI AL/PL ATELE T immature cells SEWER DIGGER Not Available [facility] ([facility]) [address], [place], [address], 03/27/2023 13:07:26 03/26/20 23 03/27/2023 CBC WITH DIFFE RENTI AL/PL ATELE T neutrophils (absolute) 6.2 x10e3 /uL 1.4-7. 0 Not Available [facility] ([facility]) [address] [place], [address], 03/27/2023 13:07:26 03/26/20 23 03/27/2023 CBC WITH DIFFE RENTI AL/PL ATELE T lymphs (absolute) 2.1 x10e3 /uL 0.7-3. 1 Not Available [facility] ([facility]) [address], [place], [address], 03/27/2023 13:07:26 03/26/20 23 03/27/2023 CBC WITH DIFFE RENTI AL/PL ATELE T monocytes(ab solute) 0.5 x10e3 /uL 0.1-0. 9 Not Available [facility] ([facility]) [address], [place], [address], 03/27/2023 13:07:26 03/26/20 23 03/27/2023 CBC WITH DIFFE RENTI AL/PL ATELE T eos (absolute) 0.1 x10e3 /uL 0.0-0. 4 Not Available [facility] ([facility]) [address], [place], [address], 03/27/2023 13:07:26 03/26/20 23 03/27/2023 CBC WITH DIFFE RENTI AL/PL ATELE T baso (absolute) 0.0 x10e3 /uL 0.0-0. 2 Not Available [facility] ([facility]) [address], [place], [address], 03/27/2023 13:07:26 03/26/20 23 03/27/2023 CBC WITH DIFFE RENTI AL/PL ATELE T immature granulocytes 0 % not estab. Not Available [facility] ([facility]) [address] [place], [address], 03/27/2023 13:07:26 03/26/20 23 03/27/2023 CBC WITH DIFFE RENTI AL/PL ATELE T immature grans (abs) 0.0 x10e3 /uL 0.0-0. 1 Not Available [facility] ([facility]) [address] [place], [address], 03/27/2023 13:07:26 03/26/20 23 03/27/2023 CBC WITH DIFFE RENTI AL/PL ATELE T NRBC SEWER DIGGER Not Available [facility] ([facility]) [address], [place], [address], 03/27/2023 13:07:26 03/26/20 23 03/27/2023 CBC WITH DIFFE RENTI AL/PL ATELE T hematology comments: SEWER DIGGER Not Available [facility] ([facility]) [address], [place], [address], 03/27/2023 13:07:26 03/26/20 23 03/27/2023 COMP. METAB OLIC PANEL (14) glucose 114 mg/dL 70-99 above high normal Not Available [facility] ([facility]) [address], [place], [address], 03/27/2023 13:07:27 03/26/20 23 03/27/2023 COMP. METAB OLIC PANEL (14) BUN 20 mg/dL 6-24 Not Available [facility] ([facility]) [address], [place], [address], 03/27/2023 13:07:27 03/26/20 23 03/27/2023 COMP. METAB OLIC PANEL (14) creatinine 1.68 mg/dL 0.76-1 .27 above high normal Not Available [facility] ([facility]) [address], [place], [address], 03/27/2023 13:07:27 03/26/20 23 03/27/2023 COMP. METAB OLIC PANEL (14) eGFR 51 mL/mi n/1.7 3 >59 below low normal Not Available [facility] ([facility]) [address], [place], [address], 03/27/2023 13:07:27 03/26/20 23 03/27/2023 COMP. METAB OLIC PANEL (14) BUN/creatini ne ratio 12 9-20 Not Available [facility] ([facility]) [address] [place], [address], 03/27/2023 13:07:27 03/26/20 23 03/27/2023 COMP. METAB OLIC PANEL (14) sodium 135 mmol/ L 134-14 4 Not Available [facility] ([facility]) [address] [place], [address], 03/27/2023 13:07:27 03/26/20 23 03/27/2023 COMP. METAB OLIC PANEL (14) potassium 4.7 mmol/ L 3.5-5. 2 Not Available [facility] ([facility]) [address], [place], [address], 03/27/2023 13:07:27 03/26/20 23 03/27/2023 COMP. METAB OLIC PANEL (14) chloride 98 mmol/ L 96-106 Not Available [facility] ([facility]) [address] [place], [address], 03/27/2023 13:07:27 03/26/20 23 03/27/2023 COMP. METAB OLIC PANEL (14) carbon dioxide, total 19 mmol/ L 20-29 below low normal Not Available [facility] ([facility]) [address] [place], [address], 03/27/2023 13:07:27 03/26/20 23 03/27/2023 COMP. METAB OLIC PANEL (14) calcium 9.6 mg/dL 8.7-10 .2 Not Available [facility] ([facility]) [address] [place], [address], 03/27/2023 13:07:27 03/26/20 23 03/27/2023 COMP. METAB OLIC PANEL (14) protein, total 7.1 g/dL 6.0-8. 5 Not Available [facility] ([facility]) [address], [place], [address], 03/27/2023 13:07:27 03/26/20 23 03/27/2023 COMP. METAB OLIC PANEL (14) albumin 4.8 g/dL 4.1-5. 1 Ple ase note refer ence inter vinod jimenez e Not Available [facility] ([facility]) [address], [place], [address], 03/27/2023 13:07:27 03/26/20 23 03/27/2023 COMP. METAB OLIC PANEL (14) globulin, total 2.3 g/dL 1.5-4. 5 Not Available [facility] ([facility]) [address], [place], [address], 03/27/2023 13:07:27 03/26/20 23 03/27/2023 COMP. METAB OLIC PANEL (14) A/G ratio 2.1 1.2-2. 2 Not Available [facility] ([facility]) [address], [place], [address], 03/27/2023 13:07:27 03/26/20 23 03/27/2023 COMP. METAB OLIC PANEL (14) bilirubin, total 0.3 mg/dL 0.0-1. 2 Not Available [facility] ([facility]) [address] [place], [address], 03/27/2023 13:07:27 03/26/20 23 03/27/2023 COMP. METAB OLIC PANEL (14) alkaline phosphatase 86 IU/L 44-121 Not Available [facility] ([facility]) [address] [place] [place], [address], 03/27/2023 13:07:27 03/26/20 23 03/27/2023 COMP. METAB OLIC PANEL (14) AST (SGOT) 27 IU/L 0-40 Not Available [facility] ([facility]) [address], [place], [address], 03/27/2023 13:07:27 03/26/20 23 03/27/2023 COMP. METAB OLIC PANEL (14) ALT (SGPT) 23 IU/L 0-44 Not Available [facility] ([facility]) [address] [place], [address], 03/27/2023 13:07:27 03/26/20 23 03/27/2023 LIPID PANEL cholesterol, total 246 mg/dL 100-19 9 above high normal Not Available [facility] ([facility]) [address] [place], [address], 03/27/2023 13:07:28 03/26/20 23 03/27/2023 LIPID PANEL triglyceride s 112 mg/dL 0-149 Not Available [facility] ([facility]) [address] [place], [address], 03/27/2023 13:07:28 03/26/20 23 03/27/2023 LIPID PANEL HDL cholesterol 45 mg/dL >39 Not Available [facility] ([facility]) [address], [place], [address], 03/27/2023 13:07:28 03/26/20 23 03/27/2023 LIPID PANEL VLDL cholesterol faheem 20 mg/dL 5-40 Not Available [facility] ([facility]) [address] [place], [address], 03/27/2023 13:07:28 03/26/20 23 03/27/2023 LIPID PANEL LDL chol calc ([facility] [place]) 181 mg/dL 0-99 above high normal Not Available [facility] ([facility]) [address] [place], [address], 03/27/2023 13:07:28 03/26/20 23 03/27/2023 LIPID PANEL comment: SEWER DIGGER Not Available [facility] ([facility]) [address], [place], [address], 03/27/2023 13:07:28 03/26/20 23 03/27/2023 TROPO CAROLYN T troponin T(highly sensitive) TNP NG/L Test not perfo rmed. No plasm a speci men recei gail. REQUI RES REF PLASM A (LITH IUM HEPAR IN) In order to disti nguis h acute eleva tions of high sensi tive Tropo carolyn from other clini faheem condi tions , the Unive rsal Defin ition of myoca rdial infar ction stres ses clini faheem asses sment and the need for seria l measu remen ts to obser ve a rise and/o r fall above the upper limit of the refer ence inter vinod. Not Available [facility] ([facility]) [address], [place], [address], 03/27/2023 13:07:28 03/26/20 23 03/27/2023 AMBIG UOUS TEST ORDER ambiguous test order Commen t Test not perfo rmed. Unabl e to perfo rm test due to curre nt unava ilabi lity of reage nts or disco ntinu ation of test. Test code #1211 85 Tropo carolyn I High Sensi tivit y was made non-[place] [facility] [place] [id number] 0 Tropo carolyn T, 5th Gener ation Highl y Sensi tive Not Available [facility] ([facility]) [address] [place], [address], 03/27/2023 13:07:29 03/26/20 23 03/27/2023 SPECI MEN STATU S REPOR T specimen status report TNP Test not perfo rmed. No plasm a speci men recei gail. TEST: [id number] 0 Tropo carolyn T REQUI RES REF PLASM A (LITH IUM HEPAR IN) Not Available [facility] ([facility]) [address], [place], [address], 03/27/2023 13:07:30 04/01/20 23 04/02/2023 URINA LYSIS , COMPL ETE specific gravity 1.012 1.005- 1.030 Not Available [facility] ([facility]) [address], [place], [address], 04/02/2023 07:07:55 04/01/20 23 04/02/2023 URINA LYSIS , COMPL ETE pH 6.0 5.0-7. 5 Not Available [facility] ([facility]) [address] [place], [address], 04/02/2023 07:07:55 04/01/20 23 04/02/2023 URINA LYSIS , COMPL ETE urine-color Yellow yellow Not Available [facility] ([facility]) [address] [place], [address], 04/02/2023 07:07:55 04/01/20 23 04/02/2023 URINA LYSIS , COMPL ETE appearance Clear clear Not Available [facility] ([facility]) [address] [place], [address], 04/02/2023 07:07:55 04/01/20 23 04/02/2023 URINA LYSIS , COMPL ETE WBC esterase Negati ve negati ve Not Available [facility] ([facility]) [address] [place], [address], 04/02/2023 07:07:55 04/01/20 23 04/02/2023 URINA LYSIS , COMPL ETE protein Trace negati ve/tra ce Not Available [facility] ([facility]) [address] [place], [address], 04/02/2023 07:07:55 04/01/20 23 04/02/2023 URINA LYSIS , COMPL ETE glucose Negati ve negati ve Not Available [facility] ([facility]) [address] [place], [address], 04/02/2023 07:07:55 04/01/20 23 04/02/2023 URINA LYSIS , COMPL ETE ketones Negati ve negati ve Not Available [facility] ([facility]) [address] [facility], [place], [address], 04/02/2023 07:07:55 04/01/20 23 04/02/2023 URINA LYSIS , COMPL ETE occult blood Negati ve negati ve Not Available [facility] ([facility]) [address], [place], [address], 04/02/2023 07:07:55 04/01/20 23 04/02/2023 URINA LYSIS , COMPL ETE bilirubin Negati ve negati ve Not Available [facility] ([facility]) [address], [place], [address], 04/02/2023 07:07:55 04/01/20 23 04/02/2023 URINA LYSIS , COMPL ETE urobilinogen ,semi-qn 0.2 mg/dL 0.2-1. 0 Not Available [facility] ([facility]) [address], [place], [address], 04/02/2023 07:07:55 04/01/20 23 04/02/2023 URINA LYSIS , COMPL ETE nitrite, urine Negati ve negati ve Not Available [facility] ([facility]) [address] [facility], [place], [address], 04/02/2023 07:07:55 04/01/20 23 04/02/2023 URINA LYSIS , COMPL ETE microscopic examination Commen wade olmedo ws if indic ated. Not Available [facility] ([facility]) [address] [facility], [place], [address], 04/02/2023 07:07:55 04/01/20 23 04/02/2023 URINA LYSIS , COMPL ETE microscopic examination See below: Micro scopi c was indic ated and was perfo rmed. Not Available [facility] ([facility]) [address] [facility], [place], [address], 04/02/2023 07:07:55 04/01/20 23 04/02/2023 URINA LYSIS , COMPL ETE WBC None seen /hpf 0 - 5 Not Available [facility] ([facility]) [address] [facility], [place], [address], 04/02/2023 07:07:55 04/01/20 23 04/02/2023 URINA LYSIS , COMPL ETE RBC None seen /hpf 0 - 2 Not Available [facility] ([facility]) [address] [facility], [place], [address], 04/02/2023 07:07:55 04/01/20 23 04/02/2023 URINA LYSIS , COMPL ETE epithelial cells (non renal) None seen /hpf 0 - 10 Not Available [facility] ([facility]) [address] [facility], [place], [address], 04/02/2023 07:07:55 04/01/20 23 04/02/2023 URINA LYSIS , COMPL ETE epithelial cells (renal) SEWER DIGGER Not Available [facility] ([facility]) [address] [facility], [place], [address], 04/02/2023 07:07:55 04/01/20 23 04/02/2023 URINA LYSIS , COMPL ETE casts None seen /lpf none seen Not Available [facility] ([facility]) [address] [facility], [place], [address], 04/02/2023 07:07:55 04/01/20 23 04/02/2023 URINA LYSIS , COMPL ETE cast type SEWER DIGGER Not Available [facility] ([facility]) [address] [facility], [place], [address], 04/02/2023 07:07:55 04/01/20 23 04/02/2023 URINA LYSIS , COMPL ETE crystals SEWER DIGGER Not Available [facility] ([facility]) [address] [facility], [place], [address], 04/02/2023 07:07:55 04/01/20 23 04/02/2023 URINA LYSIS , COMPL ETE crystal type SEWER DIGGER Not Available [facility] ([facility]) [address] [facility], [place], [address], 04/02/2023 07:07:55 04/01/20 23 04/02/2023 URINA LYSIS , COMPL ETE mucus threads SEWER DIGGER Not Available [facility] ([facility]) [address] [facility], [place], [address], 04/02/2023 07:07:55 04/01/20 23 04/02/2023 URINA LYSIS , COMPL ETE bacteria None seen none seen/f ew Not Available [facility] ([facility]) [address] [facility], [place], [address], 04/02/2023 07:07:55 04/01/20 23 04/02/2023 URINA LYSIS , COMPL ETE yeast SEWER DIGGER Not Available [facility] ([facility]) [address] [facility], [place], [address], 04/02/2023 07:07:55 04/01/20 23 04/02/2023 URINA LYSIS , COMPL ETE trichomonas SEWER DIGGER Not Available [facility] ([facility]) [address] [facility], [place], [address], 04/02/2023 07:07:55 04/01/20 23 04/02/2023 URINA LYSIS , COMPL ETE comment SEWER DIGGER Not Available [facility] ([facility]) [address] [facility], [place], [address], 04/02/2023 07:07:55 04/01/20 23 04/02/2023 BASIC METAB OLIC PANEL (8) glucose 105 mg/dL 70-99 above high normal Not Available [facility] ([facility]) [address] [place], [address], 04/02/2023 07:07:55 04/01/20 23 04/02/2023 BASIC METAB OLIC PANEL (8) BUN 16 mg/dL 6-24 Not Available [facility] ([facility]) [address] [place], [address], 04/02/2023 07:07:55 04/01/20 23 04/02/2023 BASIC METAB OLIC PANEL (8) creatinine 1.47 mg/dL 0.76-1 .27 above high normal Not Available [facility] ([facility]) [address] [place], [address], 04/02/2023 07:07:55 04/01/20 23 04/02/2023 BASIC METAB OLIC PANEL (8) eGFR 60 mL/mi n/1.7 3 >59 Not Available [facility] ([facility]) [address] [place], [address], 04/02/2023 07:07:55 04/01/20 23 04/02/2023 BASIC METAB OLIC PANEL (8) BUN/creatini ne ratio 11 9-20 Not Available [facility] ([facility]) [address] [place], [address], 04/02/2023 07:07:55 04/01/20 23 04/02/2023 BASIC METAB OLIC PANEL (8) sodium 139 mmol/ L 134-14 4 Not Available [facility] ([facility]) [address] [place], [address], 04/02/2023 07:07:55 04/01/20 23 04/02/2023 BASIC METAB OLIC PANEL (8) potassium 4.8 mmol/ L 3.5-5. 2 Not Available [facility] ([facility]) [address] [facility] [facility], [place], [address], 04/02/2023 07:07:55 04/01/20 23 04/02/2023 BASIC METAB OLIC PANEL (8) chloride 99 mmol/ L 96-106 Not Available [facility] ([facility]) [address] [facility], [place], [address], 04/02/2023 07:07:55 04/01/20 23 04/02/2023 BASIC METAB OLIC PANEL (8) carbon dioxide, total 23 mmol/ L 20-29 Not Available [facility] ([facility]) [address] [facility], [place], [address], 04/02/2023 07:07:55 04/01/20 23 04/02/2023 BASIC METAB OLIC PANEL (8) calcium 9.7 mg/dL 8.7-10 .2 Not Available [facility] ([facility]) [address] [facility] [facility], [place], [address], 04/02/2023 07:07:55 03/26/20 23 03/26/2023 elect rocar diogr am No observ ation record ed. [email or web address] [place] [address], [id number], 03/26/2023 10:29:49 03/26/20 23 03/26/2023 elect rocar diogr am No observ ation record ed. [email or web address], [address], 03/26/2023 11:37:24 04/14/20 23 04/12/2023 cardi ac stres s test No observ ation record ed. [facility] [address], [place], [address], 04/15/2023 08:25:09 04/17/20 23 04/17/2023 stres s echoc ardio gram No observ ation record ed. [facility] [address], [place], [address], 04/18/2023 08:28:46 08/21/20 23 08/21/2023 XR, chest , 2 view No observ ation record ed. [facility] [address], [place], [address], 08/29/2023 14:26:45 12/27/19 24 12/27/2023 XR, chest , 2 view No observ ation record ed. [facility] [address], [place], [address], 12/27/2023 13:02:04 Result Notes None recorded. Problems Name Problem SNOMED Code Status Onset Date Resolution Date Notes Provider Name and Address Organization Details Recorded Time Arthritis 2557562 Active Prisca Nieto [place], [place] - [facility] 3 09:35:10 Essential hypertensi on 42291795 Active 2022 Obed Reeder APRN [address], [place], [address] , [facility] - [facility] 3 08:26:35 Chest pain 94986494 Active 2022 Obed Reeder APRN [address], [place], [address] , [facility] - [facility] 3 08:26:49 Obesity 677521632 Active 2022 Obed Reeder APRN [address], [place], [address] , [facility] - [facility] 3 09:37:29 Acute injury of kidney 4081243828767 4108 Active 2022 Obed Reeder APRN [address], [place], [address] , [facility] - [facility] 3 15:46:15 Problem Notes None recorded. Medical Equipment None Reported. Allergies Allergen ID Allergen Name Allergen Category Reaction Reaction Severity Criticality Documentation Date Start Date Code Code System Note Provider Name and Address Organization Details Recorded Time 14377 Product containin g penicilli n (product) medicatio n vomiting moderate high 06/22/20162013 95193 8001 SNOMED Prisca Nieto null, [place] - [facility] 16:31:08 Medications Name Sig Start Date Stop Date Status Note LastModified by Organization Details LastModified Time doxycycli ne hyclate 100 mg capsule Take 1 capsule twice a day by oral route for 7 days. 02/02 completed Not Available Not Available Not Available clindamyc in HCl 300 mg capsule 01/19 completed Not Available Not Available Not Available IBU 800 mg tablet 01/19 completed Not Available Not Available Not Available lisinopri l 20 mg tablet Take 1 tablet every day by oral route for 90 days. active Not Available Not Available No t Available Medrol (Ector) 4 mg tablets in a dose pack take as directed 05/22 completed Medrol (Ector) oral tablets, dose pack 4 mg;Presc ribe Status: Prescrib ed on: 03/05/20 14 5:37PM;U ser: meyerst; Pharmacy Verified : 03/05/20 14 5:37PM Not Available Not Available Not Available prednison e 20 mg tablet Take 1 tablet twice a day by oral route for 5 days. active Not Available Not Available No t Available Zithromax Z-Ector 250 mg tablet TAKE 2 TABLETS (500 MG) BY ORAL ROUTE ONCE DAILY FOR 1 DAY THEN 1 TABLET (250 MG) BY ORAL ROUTE ONCE DAILY FOR 4 DAYS active Not Available Not Available No t Available Robaxin-7 50 750 mg tablet take 1 tablet (750 mg) by oral route 3 times per day 03/22 completed Robaxin- 750 oral tablet 750 mg;Presc ribe Status: Prescrib ed on: 03/12/20 14 3:03PM;U ser: meyerst; Est. Completi on: 03/22/20 14;Indic ation: Muscle Spasm - (13.7288 50);Phar Maria Esthereri fied: 03/12/20 14 3:03PM Not Available Not Available Not Available lisinopri l 10 mg tablet Take 1 tablet every day by oral route in the morning for 30 days. 01/19 completed Not Available Not Available Not Available nicotine 21 mg/24 hr daily transderm al patch Apply 1 patch every day by transder mal route. 01/19 completed Not Available Not Available Not Available ibuprofen 200 mg tablet Take 3 tablets every 6 hours by oral route. 01/19 completed Not Available Not Available Not Available dexametha sone sodium phosphate 4 mg/mL injection solution Inject 1 mL every day by intramus cular route. 2024 active Not Available Not Available Not Avai lable Ventolin HFA 90 mcg/actua tion aerosol inhaler Inhale 1 puff every 4 hours by inhalati on route as needed. active Not Available Not Available No t Available Tylenol Arthritis 650 mg tablet,ex tended release Take 2 tablets every 8 hours by oral route. 03/26 completed Not Available Not Available Not Available buprenorp jaylon 8 mg-naloxo ne 2 mg sublingua l tablet DISSOLVE 1 & 1/2 TABLET UNDER THE TONGUE ONCE DAILY active Not Available Not Available No t Available Tylenol Arthritis Pain 2 tablets as directed 01/19 completed Not Available Not Available Not Available Vitals Date Recorded Body weight Heart rate Oxygen saturation Oxygen saturation in Arterial blood by Pulse oximetry Respiratory rate Pain severity - 0-10 verbal numeric rating [Score] - Reported Systolic And Diastolic Provider Name and Address Organization Details Last Updated DateTime 5 054906. 87 g 100 /min 98 % 98 % 18 /min 0 138/88 mm[Hg] Prisca Nieto [place] - [facility] 5 15:42:49 Date Recorded Body height Provider Name an d Address Organization Details Last Updated DateTime 04/01/2023 182.88 cm Prisca Nieto [place] - [facility] 0 04/01/2023 08:54:27 Date Recorded Body height Body mass index (BMI) Body weight Body temperature Heart rate Oxygen saturation Oxygen saturation in Arterial blood by Pulse oximetry Respiratory rate Pain severity - 0-10 verbal numeric rating [Score] - Reported Systolic And Diastolic Provider Name and Address Organization Details Last Updated DateTime 3 182.88 cm 33.4 kg/m2 200262. 42 g 97.6 [degF] 73 /min 97 % 97 % 18 /min 0 134/88 mm[Hg] Prisca DAO - [facility] 3 08:53:29 Date Recorded Body weight Heart rate Oxygen saturation Oxygen saturation in Arterial blood by Pulse oximetry Body temperature Respiratory rate Pain severity - 0-10 verbal numeric rating [Score] - Reported Systolic And Diastolic Provider Name and Address Organization Details Last Updated DateTime 5 382934. 02 g 110 /min 98 % 98 % 98.1 [degF] 20 /min 0 150/90 mm[Hg] Prisca Wheelerler [place] - [facility] 5 13:48:46 Date Recorded Body height Body mass index (BMI) Body weight Respiratory rate Body temperature Oxygen saturation Oxygen saturation in Arterial blood by Pulse oximetry Heart rate Systolic And Diastolic Provider Name and Address Organization Details Last Updated DateTime 3 182.88 cm 33 kg/m2 354260. 95 g 18 /min 97.4 [degF] 97 % 97 % 102 /min 166/98 mm[Hg] Sandrine Christinesean [place] - [facility] 3 08:34:43 Social History Question Answer Notes LastModified by Organizat ion Details LastModified Time Tobacco Smoking Status Current Every Day Smoker Prisca Emilia [facility] 05/22/2022 16:34:03 Do You Have An Advance Directive? No Information n ot available 03/26/2023 Are You Blind Or Do You Have Difficulty Seeing? No Information n ot available 03/26/2023 What Is Your Level Of Caffeine Consumption? Moderate Information not available 05/22/2022 In The 14 Days Before Symptom Onset, Have You Had Close Contact With A Laboratory-confirm ed COVID-19 While That Case Was Ill? No Information n ot available 03/26/2023 In The 14 Days Before Symptom Onset, Have You Had Close Contact With A Person Who Is Under Investigation For COVID-19 While That Person Was Ill? No Information not available 03/26/2023 Have You Been To An Area Known To Be High Risk For COVID-19? No Information not available 03/26/2023 Are You Deaf Or Do You Have Serious Difficulty Hearing? No Information not available 03/26/2023 What Type Of Diet Are You Following? REGULAR Information n ot available 08/19/2023 Have You Processed Blood Or Body Fluids From An Ebola Virus Disease Patient Without Appropriate PPE? No Information not available 03/26/2023 Do You Reside In Or Have You Traveled To An Area Where Ebola Virus Transmission Is Active? No Information not available 03/26/2023 What Is The Highest Grade Or Level Of School You Have Completed Or The Highest Degree You Have Received? [id number] Information not available 08/19/2023 Have There Been Any Changes To Your Family Or Social Situation? No Information no t available 03/26/2023 Have You Recently Or Are You Planning To Travel To An Area With Zika Virus? No Information not available 03/26/2023 Do You Have A Medical Power Of Senior Electrical Engineer? No Information not available 03/26/2023 What Was The Date Of Your Most Recent Tobacco Screening? 01/19/2025 Information not available 01/19/2025 What Is Your Current Pack Years? 10packyears Information not available 08/19/2023 What Is Your Relationship Status? Single Information not available 05/22/2022 Do You Have Smoke And Carbon Monoxide Detectors In Your Home? Yes Information not available 03/26/2023 At What Age Did You Start Smoking Tobacco? 33 Information not available 05/22/2022 Are You Passively Exposed To Smoke? No Information no t available 03/26/2023 How Much Tobacco Do You Smoke? 1 PPD Information not available 05/22/2022 Has Tobacco Cessation Counseling Been Provided? Yes Information not available 03/26/2023 On What Date Was Tobacco Cessation Counseling Provided? 03/26/2023 Information not available 03/26/2023 How Many Years Have You Smoked Tobacco? 9 Information not available 05/22/2022 Do You Have Difficulty Walking Or Climbing Stairs? No Information not available 03/26/2023 Sex: Male Functional Status Question Answer Note LastModified by Organizat ion Details LastModified Time Do you use any illicit or recreational drugs? No Information not available 05/22/2022 Do you or have you ever used any other forms of tobacco or nicotine? No Information not available 03/26/2023 What is your level of alcohol consumption? None Information not available 05/22/2022 Are you currently employed? No Information not available 08/19/2023 Do you have transportation difficulties? No Information not available 03/26/2023 Are you able to walk independently without assistance or assistive devices? YESWOREST Information not available 03/26/2023 Do you have difficulty doing errands alone? No Information not available 03/26/2023 Are you able to care for yourself independently? Yes Information not available 03/26/2023 Do you have difficulty dressing, bathing, grooming, or toileting? No Information not available 03/26/2023 What is your exercise level? None Information not available 08/19/2023 Mental Status Question Answer Note LastModified by Organization D etails LastModified Time Do you have difficulty concentrating, remembering or making decisions? No Information no t available 03/26/2023 Family History Relationship Description Onset Age of this Age Resolved Age Notes LastModified by Organization Details LastModified Time Mother Diabetes mellitus cbuckler Not available 2021 16:31:54 Mother Myocardial infarction cbuckler Not available 05/22 16:32:07 Father Essential hypertension cbuckler Not available 02/2022 16:32:24 Medical History Condition Response Pancreatitis N Coronary Artery Disease N Other N Gout N Atrial Fibrillation N congenital heart disease N Kidney Stones N Blood Diseases N Hyperthyroidism N Rheumatoid arthritis N Blood Transfusion N Erectile Dysfunction N amputation N Colonoscopy N Skin Lesions N Depression N COPD N Pneumonia N Incontinence N Murmur N Edema N Alzheimer's Disease N Migraine Headaches N Tobacco Abuse N Anxiety Disorder N Muscle, Joint, or Bone Problems N Hemorrhoids N Obesity N Vision or Eye Problems N Restless Leg Syndrome N Arthritis N Polyps N Infertility N Mental Disorder N Carpal Tunnel N Acid Reflux (GERD) N Cancer N Varicosities N Stroke N Tendonitis N Crohn's Disease N Hypercholesterolemia N Skin Cancer N Headaches N Fibromyalgia N Irritable Bowel Syndrome N Anal Fissure N Kidney Disease N Heart Problems N Ear or Hearing Problems N Hospitalizations N Gallstones N Kidney or Bladder Problems N Goiter N Acne N Skin Problems N Eating Disorder N Moreno's Esophagus N Hypertriglyceridemia N MRSA exposure N Constipation N Embolism N Vitamin B12 Deficiency N Deviated Septum N Tuberculosis N AIDS/HIV N Myocardial Infarction N Asthma N Mitral Valve Disorders N Vertigo N Hepatitis N Thyroid Cancer N Neuropathy N Pulmonary Embolism N History of DVT N Herniated Disc N Chronic Ear Infections N Chicken Pox N Autism Spectrum Disorder (ASD) N Von Willebrands Disease N Thrombophilias N Breast Cancer N Hernia N Plantar Fasciitis N Hospital Admission Other Than N Lung Disease N Hypothyroidism N Defects or Inherited Disease N Developmental or Behavioral Disorders N Breast Problem N Difficulty Swallowing N Ovarian Cyst N Anesthesia Complications N Testosterone Deficiency N Meniere's disease N Head Injury/Concussion N Interstitial Cystitis N Congenital Anomalies N Hypoglycemia N Blood clot N Vitamin D Deficiency N Cellulitis N Endometriosis N Bladder or Kidney Problems N Fracture N Colorectal Cancer N Liver Disease N Schizophrenia N Panic Disorder N Concussion N Spina Bifida N Allergies/Hayfever N Osteoarthritis N Parkinson's Disease N Disc Protrusion N STI N Esophagitis N Angina N Thyroid Problems N GI Problems N ADD/ADHD N Anemia N Multiple Sclerosis N Abnormal PAP N Lumbago N Mental Illness N Psychiatric Illness N Ovarian Cancer N Diabetes N Bedwetting N Degenerative Disc Disease N Seizures/Epilepsy N Congestive Heart Failure (CHF) N Syncope N Insomnia N Hyperlipidemia N Eczema N Abuse/Domestic Violence N Attention Deficient Disorder N Dementia N Diverticulitis N Ulcerative colitis N Cerebrovascular Disease N Depression N Guillain-[place] N Sleep Apnea N Aneurysm N Bronchitis N Heart Disease N Suicidal Ideation N Pre-Eclampsia N Hypertension N Osteoporosis N Immunizations Vaccine Type Date Status Note Provider Nam e and Address Organization Details Recorded Time COVID-19 vaccine, vector-nr, rS-Ad26, PF, 0.5 mL 01/28/2021 completed FELIBERTO Carbone - [facility] 04/01/2023 08:54:37 Past Encounters Encounter ID Performer Location Encounter Start Date Encounter Closed Date Diagnosis/Indication Diagnosis SNOMED-CT Code Diagnosis ICD10 Code Diagnosis IMO Codes Diagnosis Note [id number] Shawn Rahman APRN [facility] [address] [place] [address] 05/22/2022 16:12:37 05/22/2022 17:25:20 Acute pain of joint of knee 4830672851 13795 M25.569 brace appliedele vatesteroi ds as orderedice 20 mins and remove may repeat every hour for comfortcon tinue motrin and tylenol as needed for pain [id number] Eugonda Fryman, [address] [address] 06/18/2022 13:20:49 06/18/2022 14:09:19 Pharyngitis 420395518 J02.9 Acute maxi llary sinusitis 52447187 J01.00 [id number] Obed Reeder [address] [address] 03/26/2023 09:18:31 03/26/2023 10:23:50 Essential hypertension 57585373 I10 3rd visit with an elevated blood pressure greater than 140 systolic/s tarting low dose lisinopril /follow up in 1 month Chest pain 51434349 R07. 9 5 min episode of substernal chest pain with no associated symptoms, nonpleurit ic or musculoske letal in nature, several risk factors, EKG negative/l abs and cardiology referral (Shree) Body mass index 30+ - obesity 036335831 Z68.33 Obesity 388061252 E66.9 Tobacco user 578743846 Z 72.0 [id number] Shawn Rahman[address] [address] 04/01/2023 08:50:20 04/01/2023 09:16:09 Acute injury of kidney 2547179591 6959717 N17.9 [id number] [facility] [place] [address] 04/26/2023 08:37:47 04/26/2023 09:00:33 Essential hypertension 37980409 I10 [id number] [facility] [place] [address] [address] 08/19/2023 08:19:30 08/19/2023 09:48:59 Acute bronchitis 06734117 J20.9 Dyspnea 574089342 R06.00 chest xraypft to r/o copdif symptoms do not improve or worsen go to ed Tobacco user 014400078 Z 72.0 [id number] Shawn Rahman [employer] [address] [address] 01/19/2025 15:30:23 01/19/2025 16:17:44 Acute bronchitis 93336844 J20.9 97383057 inhaler as neededmeds as orderedif symptoms worsen or no improvemen t return [id number] Shawn Rahman APRN [address] [address] 07/15/2025 13:29:26 07/15/2025 14:09:52 Bronchitis 52195627 J40 87676 inhaler as neededmeds as orderedif symptoms worsen or no improvemen t return Health Concerns Section Related Observation LastModified by Organization Detai ls LastModified Time None Recorded Concern Status LastModified by Organization Details LastModified Time None Recorded Advance Directives Directive N: Payers Insurance Date Sequence Insurance Name Policy Number Policy Morrison Covered Member ID Morrison Member ID Guarantor Name 07/15/2025 1 [facility] Omid Perez [id number] Omid Perez 07/15/2025 [place] [facility] Omid Perez [id number] Omid Perez 07/15/2025 1 [facility] [place] ([place] - [place] [facility] Omid Perez [id number] Omid Perez 07/15/2025 1 [facility] [place] ([place] - [place] [facility] Omid Perez [id number] Omid Perez 08/22/2022 1 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 Prisca jacobs, [place] - [facility] 04/01/2023 09:22:17 04/26/2023 text/html 43 yr old male presents to follow up on blood pressure. He was placed on lisinopril on last visit and has been doing well on it. Shawn Rahman, PAT [address], [place], [address], [place] - [facility] 04/26/2023 09:02:43 08/19/2023 text/html 43 year old male who presents to the office today with concerns ofchest pressure/ shortness of breath when lying down, states started this morning, thinks he has pleurisy. He denies chest pain and states everything feels better when he is sitting or standing. pt states he seen cardiology and had alot of work up done in the last month and everything was good per pt. pt states this feels like its his lungs. that he cant get enough air in. has nasal congestion, sinus pressure and drainage Shawn Rahman APRN [address], [place], [address], [place] - [facility] 08/19/2023 10:11:06 01/19/2025 text/html ROS as noted in the HPI 44 yr old male presents for chest congestion since Saturday morning. Has a cough and pain in chest when coughing. Also complains of head congestion, sinus pressure. Shawn Rahman APRN [address], [place], [address], [place] - [facility] 01/19/2025 15:53:16 07/15/2025 text/html ROS as noted in the HPI 45 yr old male presents for soa- he went to er this am and they did an x ray, covid was negative, ekg, blood work and chest x ray. When he lays down he gets more soa. Shawn Rahman APRN [address], [place], [address], [place] - [facility] 07/15/2025 14:00:54
--- OUTSIDE RECORDS SUMMARY | 2025-07-25 10:05 | XMS_ITS | Continuity of Care Document ---
Author Organization [facility] Address [address] [place] [address] Care Team Providers Care Leather Coater Name Role Phone TATYANA HUI Primary Care Provider Assessment No assessment recorded. Plan of Treatment Reminders Order Date Submit Date Provider Last Modified By Organization Details Last Modified Time Details Appointments None recorded. Lab None recorded. Referral None recorded. Procedures None recorded. Surgeries None recorded. Imaging None recorded. Medication Orders dexamethaso ne sodium phosphate 4 mg/mL injection solution 2024 025 bstears Not available 5 14:16:34 Patient TargetsNo targets recorded. Patient InstructionsNo instructions recorded. Reason for Referral None Reported. Problems Name Problem SNOMED Code Status Onset Date Resolution Date Notes Provider Name and Address Organization Details Recorded Time [facility] 5600735 [facility] 09:[facility]10 Essential hypertensi on 14948219 Active 2022 Obed Reeder APRN [address], [place], [address] , [facility] [place] 08:26:35 Chest pain 60696767 Active 2022 Obed Reeder APRN [address], [place], [address] , [facility] [place] 08:26:49 Obesity 702460203 Active 2022 Obed Reeder APRN [address], [place], [address] , [facility] [place] 09:37:29 Acute injury of kidney 9420694815414 4108 Active 2022 Obed Reeder, T[employer]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 Medical Equipment None Reported. Allergies Allergen ID Allergen Name Allergen Category Reaction Reaction Severity Criticality Documentation Date Start Date Code Code System Note Provider Name and Address Organization Details Recorded Time 37239 Product containin g penicilli n (product) medicatio n vomiting moderate high 06/22/20162013 84957 8001 SNOMED Prisca Nieto [facility], [place] - [facility] 2 16:31:08 Medications Name Sig Start Date Stop [...] 03/22/20 14;Indic ation: Muscle Spasm - (13.7288 50);Jaspreet River fied: 03/12/20 14 3:03PM Not Available Not [...] Address Organization Details Last Updated DateTime 5 228857. 02 g 110 /min 98 % 98 % 98.1 [degF] 20 /min 0 150/90 mm[Hg] Prisca Nieto [place] - [facility] 5 13:48:46 Social History Question Answer Notes LastModified by Organizat ion Details LastModified Time Tobacco Smoking Status Current Every Day Smoker Prisca jacobs, [place] - [facility] 05/22/2022 16:34:03 Do You Have An [...] Or The Highest Degree You Have Received? [id number] Information not available 08/19/2023 Have There Been Any Changes To Your Family Or Social Situation? No Information no t available 03/26/2023 Have You Recently Or Are You Planning To Travel To An Area With Zika Virus? No Information not available 03/26/2023 Do You Have A Medical Power Of Electronic Scanner Operator? No Information not available 03/26/2023 What Was [...] Than N Lung Disease N Hypothyroidism N Developmental or Behavioral Disorders N Defects or Inherited Disease N Breast Problem N Difficulty Swallowing N Ovarian Cyst N Anesthesia Complications N Testosterone Deficiency N Meniere's disease N Head Injury/Concussion N Interstitial Cystitis N Congenital Anomalies N Hypoglycemia N Blood clot N Vitamin D Deficiency N Cellulitis N Endometriosis N Fracture N Bladder or Kidney Problems N Colorectal Cancer N Liver Disease N [...] N Insomnia N Hyperlipidemia N Eczema N Diverticulitis N Dementia N Attention Deficient Disorder N Abuse/Domestic Violence N Ulcerative colitis N Cerebrovascular Disease N Depression N Guillain-[place] N Sleep Apnea N Aneurysm N Heart Disease N Bronchitis N Suicidal Ideation N Pre-Eclampsia N Hypertension N Osteoporosis N Immunizations Vaccine Type Date Status Note Provider Nam e and Address Organization Details Recorded Time COVID-19 vaccine, vector-nr, rS-Ad26, PF, 0.5 mL 01/28/2021 completed Prisca jacobs, [place] - [facility] 04/01/2023 08:54:37 Past Encounters Encounter ID Performer Location Encounter Start Date Encounter Closed Date Diagnosis/Indication Diagnosis SNOMED-CT Code Diagnosis ICD10 Code Diagnosis IMO Codes Diagnosis Note [id number] Hui Rahman APRN [facility] [address] [place] [address] 07/15/2025 13:29:26 07/15/2025 14:09:52 Bronchitis 65603015 J40 71907 inhaler as neededmeds as orderedif symptoms worsen or no improvemen t return Health Concerns Section Related Observation LastModified by Organization Detai ls LastModified Time None Recorded Concern Status LastModified by Organization Details LastModified Time None Recorded Payers Encounter Date Sequence Insurance Name Policy Number Policy Morrison Covered Member ID Morrison Member ID Guarantor Name 07/15/[address] [facility] [place] - [place] FELIBERTO Omid Perez [id number] Omid Perez Notes Date Note Type Note Provider Name and Address Organization Details Recorded Time 07/15/2025 text/html ROS as noted in the HPI 45 yr old male presents for soa- he went to er this am and they did an x ray, covid was negative, ekg, blood work and chest x ray. When he lays down he gets more soa. Hui Rahman, PAT [address], [place], [address], [place] - [facility] 07/15/2025 14:00:54
--- OUTSIDE RECORDS SUMMARY | 2025-07-25 10:05 | XMS_ITS | Clinical Summary ---
Author Organization Healthcare Address [address] [place] [address] Care Team Providers Care Registered Veterinary Technician Name Role Phone Pcp, No Primary [...] Cancer Screening 2023 [facility]-Depression Screening 12/18/2024 12/19/2023 [id number] Vaccine ( season) 2025 01/28/2021 [facility]-Influenza Vaccine [...] patient's age to complete this topic Insurance [employer] MEDICAID Care Teams Registered Veterinary Technician Relationship Specialty Start Date End Date Pcp, [place] [address] PCP - General Family Medicine 06/30/23
[2025-07-25 10:26] LABS: Lactate Venous 2.0 mmol/L (0.4-2.0); VBG HCO3 25.3 mmol/L (23-30); VBG PCO2 51.1 mmol/L (35-51); VBG PH 7.31 mmol/L (7.31-7.41); VBG PO2 30.9 mmol/L (28-40)
--- NOTE | 2025-07-25 11:28 | ED_ITS ---
Discharge Plan Disposition Patient Disposition: Home, Self-Care Prescriptions Prescriptions: No Action lisinopril 10 mg tablet 10 mg PO DAILY buprenorphine-naloxone [Suboxone] 8-2 mg film 1 film buccal DAILY albuterol sulfate [Ventolin HFA] 90 mcg/actuation HFA aerosol inhaler 2 puff inhalation Q4-6H PRN albuterol sulfate 90 mcg/actuation HFA aerosol inhaler 2 inh inhalation QID PRN (Reason: shortness of breath or wheezing) 90 Days Qty: 8.5 2RF azithromycin 250 mg tablet See Rx Instructions .ROUTE .COMPLEX Qty: 6 0RF Rx Instructions: For 250 mg dose pack: take 500 mg today (day 1), then 250 mg for 4 days (days 2-5) prednisone 20 mg tablet 40 mg PO DAILY 5 Days Qty: 10 0RF Referrals Follow up/Referrals: Shawn Rahman APRN [Primary Care Provider, Medical] - See instructions Activity Restrictions/Add. Instructions Additional Instructions/Restrictions: Continue to follow-up with your primary care doctor about decreasing your smoking use. I recommend following up with them as well to monitor your laboratory workup to continue to monitor your kidney function. Return to the emergency department for any new or worsening symptoms. Clinical Impressions Clinical Impression: Shortness of breath Instructions Patient Instructions: DI for Chronic Bronchitis Print Language Print Language: [place] Discharge ED Provider: Odalys Ritter General Adult HPI General Chief complaint: Shortness of Breath/Dyspnea Stated complaint: diff. breathing, doesn't feel right Time Seen by Provider: 07/25/25 11:17 Mode of Arrival: Ambulatory Source of Information: Patient Description of Symptoms (Recalled from ER Triage Doc. by RN): pt presents to the ED with shortness of breath while laying on his right side. pt reports that he was seen in the ED on July 15 with similar episodes. pt states that he was given a shot at his PCP and was feeling better until he woke up this morning. Denies chest pain. History of Present Illness HPI narrative: Patient is a 45-year-old past medical history significant for tobacco use disorder hypertension presents the emergency department with shortness of breath. Patient says that he was evaluated in the emergency department on the with similar episodes was diagnosed with a COPD exacerbation at improvement of steroids and Z-Ector. Patient denies any cough fever congestion headache nausea vomiting or chest pain. Patient says that he is only short of breath whenever he lays flat or on his right side. Patient says that the steroids tend to help his shortness of breath with the most. Denies any weight gain or lower extremity swelling. Related Data Home Medications ?Medication ?Instructions ?Recorded ?Confirmed lisinopril 10 mg tablet 10 mg PO DAILY 04/03/23 04/11/09 albuterol sulfate 90 mcg/actuation 2 puff inhalation Q 4-6H PRN 10/18/23 12/27/23 aerosol inhaler (Ventolin HFA) buprenorphine 8 mg-naloxone 2 mg 1 film buccal DAILY 0 10/18/23 12/27/23 sublingual film (Suboxone) Previous Rx's ?Medication ?Instructions ?Recorded albuterol sulfate 90 mcg/actuation 2 inh inhalation QI D PRN shortness 10/18/23 aerosol inhaler of breath or wheezing 90 day s #8.5 grams azithromycin 250 mg tablet See Rx Instructions PO .COM PLEX #6 07/15/25 tabs prednisone 20 mg tablet 40 mg (2 x 20 mg) PO DAILY 5 days 07/15/25 #10 tabs Allergies Allergy/AdvReac Type Severity Reaction Status Date / Time Penicillins Allergy Intermediate Vomiting Verified 12/27/23 11:12 [facility] Disclaimer: The information contained in this section may have been updated after the patient was seen, as this information can be updated by other users. Medical History Dyspnea on exertion Smoking greater than 30 pack years HTN (hypertension) Tobacco use Family history of ischemic heart disease Dyspnea Chest pain Surgical History No history of previous surgery Family History Mother Diabetes Hypertension Heart attack Father Hypertension Social History Smoking Status: Current every day smoker tobacco type: cigarettes packs per day: 1 alcohol intake: never current occupational status: employed Travel in the last 8 weeks?: None Have you lived/traveled outside [place] in past 30 days?: No Contact w/someone who lives/traveled outside US past 30 days?: No Exposure to someone with infectious disease in past 14 days?: No Do you have a fever (greater than 100.4 F or 38 C)?: No Have you tested positive for COVID-19?: No Exposed to someone with COVID-19 in past 14 days?: No Do you have a sore throat?: No Do you have a cough?: No Do you have any weakness?: No Do you have any diarrhea?: No Are you experiencing any unusual bleeding?: No Do you have any muscle aches/pain?: No Do you have any abdominal pain?: No Are you experiencing loss of taste or smell?: No ROS Obtained: Yes All systems reviewed & no additional complaints except as documented Physical Exam General General appearance: alert and in no apparent distress Eye Eye exam: Present normal appearance Chest Chest inspection: Present normal inspection Respiratory Respiratory exam: Present normal lung sounds bilaterally; Absent respiratory distress or wheezes Cardiovascular Cardiovascular exam: Present regular rate and normal rhythm Abdominal Exam Abdominal exam: Present soft; Absent distention or tenderness Extremities Exam Extremities exam: Absent edema Neurological Exam Neurological exam: Present alert and oriented X3 Medical Decision Making Medical Records Screening: Per USPSTF and CDC recommendations, given the prevalence of disease in our region, it is our hospital?s policy to screen for HIV and viral Hepatitis for all patients aged 18 and over and those with ongoing risk factors. Kermit Inquiry Pt receiving controlled substance: No Vital Signs: 07/25/25 10:00 07/25/25 10:00 07/25/25 10:02 Temperature 98.8 F 98.8 F Temperature Source Oral Oral Pulse Rate 95 H 100 H Pulse Rate [Right] 95 H Respiratory Rate 18 18 Blood Pressure 155/92 H 161/116 H Blood Pressure [Right Arm] 155/92 H Blood Pressure Mean [Right Arm] 113 Blood Pressure Source Automatic Cuff Blood Pressure Source [Right Arm] Automatic Cuff Blood Pressure Position Supine Blood Pressure Position [Right Arm] Supine 02 Sat by Pulse Oximetry 99 99 98 Oxygen Delivery Method Room Air Room Air Room Air 07/25/25 10:07 07/25/25 10:15 07/25/25 10:30 Temperature Temperature Source Pulse Rate 89 83 Pulse Rate [Right] Respiratory Rate Blood Pressure 155/92 H 136/86 Blood Pressure [Right Arm] Blood Pressure Mean [Right Arm] Blood Pressure Source Blood Pressure Source [Right Arm] Blood Pressure Position Blood Pressure Position [Right Arm] 02 Sat by Pulse Oximetry 97 99 97 Oxygen Delivery Method Room Air Room Air Room Air 07/25/25 11:00 07/25/25 11:30 07/25/25 11:35 Temperature Temperature Source Pulse Rate 77 76 Pulse Rate [Right] Respiratory Rate Blood Pressure 141/81 H 131/84 Blood Pressure [Right Arm] Blood Pressure Mean [Right Arm] Blood Pressure Source Blood Pressure Source [Right Arm] Blood Pressure Position Blood Pressure Position [Right Arm] 02 Sat by Pulse Oximetry 95 96 98 Oxygen Delivery Method Room Air Room Air Room Air 07/25/25 12:00 07/25/25 12:30 07/25/25 13:00 Temperature Temperature Source Pulse Rate 73 73 78 Pulse Rate [Right] Respiratory Rate 14 12 14 Blood Pressure 121/79 132/76 131/76 Blood Pressure [Right Arm] Blood Pressure Mean [Right Arm] Blood Pressure Source Blood Pressure Source [Right Arm] Blood Pressure Position Blood Pressure Position [Right Arm] 02 Sat by Pulse Oximetry 97 96 96 Oxygen Delivery Method Room Air Room Air Room Air Lab Data Lab Results 07/25/25 10:06: WBC 14.1 H, RBC 5.17, Hgb 15.2, Hct 46.2, MCV 89.4, MCH 29.4, MCHC 32.9, RDW 14.5, Plt Count 371, MPV 9.3, Neut % (Auto) 83.2 H, Lymph % (Auto) 11.8, [place] % (Auto) 2.8, Eos % (Auto) 0.8, Baso % (Auto) 0.3, Neut # (Auto) 11.7 H, Lymph # (Auto) 1.7, [place] # (Auto) 0.4, Eos # (Auto) 0.1, Baso # (Auto) 0.0, VBG pH 7.31, VBG pCO2 51.1 H, VBG pO2 30.9, VBG HCO3 25.3, VBG Total CO2 26.8, VBG O2 Saturation 57.0, VBG Base Excess -1.0, VBG Lactic Acid 2.0, Sodium 139, Potassium 4.4, Chloride 101, Carbon Dioxide 27, Anion Gap 15.4 H, BUN 20, Creatinine 1.80 H, Estimated Creat Clear 85, Estimated GFR 41 L, Est GFR ( Amer) 49 L, Glucose 132 H, Calcium 9.7, Total Bilirubin 0.7, AST 34, ALT 25, Alkaline Phosphatase 98, Troponin I < 0.01, NT-Pro-B Natriuret Pep < 20.0, Total Protein 8.3 H, Albumin 5.3 H, Globulin 3.0, Albumin/Globulin Ratio 1.8 07/25/25 12:44: Troponin I < 0.01 07/25/25 10:06 07/25/25 10:06 Orders (Tests/Meds): ED MEDICATIONS Discontinued Medications Generic Name Dose Route Start Last Admin Trade Name Freq PRN Reason Stop Dose Admin Albuterol/Ipratropium 3 ml 07/25/25 11:27 07/25/25 11:39 Ipratropium/Albuterol 3 Ml Neb IH 07/25/25 11:28 3 ml ONCE ONE Administration ORDERS Category Date Time Status CXR 2 view (NOT portable) [XR chest 2V] Stat Exams 07/25/25 12:54 Taken POCUS Point of Care (ER Only) Stat Exams 07/25/25 11:27 Ordered Complete Blood Count Auto Diff Stat Lab 07/25/25 10:06 Completed Comprehensive Metabolic Panel Stat Lab 07/25/25 10:06 Completed NT Pro Brain Natriuretic Pep. Stat Lab 07/25/25 10:06 Completed Troponin I Q3H Lab 07/25/25 12:44 Completed Troponin I Q3H Lab 07/25/25 17:30 Ordered Troponin I Stat Lab 07/25/25 10:06 Completed VBG [Venous Blood Gas] Stat RT 07/25/25 10:06 Completed Medical Decision Narrative: In summary, this 45-year-old presents to the emergency department today with shortness of breath. On initial evaluation patient is hemodynamically stable saturating appropriately on room air afebrile no acute distress. Differential diagnosis includes but is not limited to ACS COPD allergic rhinitis exacerbation pneumonia bronchitis pulmonary edema secondary to undiagnosed heart failure. Based on these concerns, I ordered CBC CMP troponin EKG chest x-ray. ECG personally interpreted demonstrates normal sinus rhythm no ST elevation ST depression or T wave inversions concerning for ischemia. Patient received DuoNeb for treatment. Labs personally reviewed demonstrate creatinine of 1.8 baseline approximately 1.5 normal BNP normal troponin XR personally interpreted demonstrates no focal consolidation On reassessment patient remains stable on room air. Symptoms most consistent with improving bronchitis. Recommend following up with his primary care provider and continue to work on cessation smoking. Of note, social determinants of health include chronic tobacco use Procedures Limited Ultrasound Indication:: Shortness of breath Views:: Limited Cardiac Ultrasound Indication: Shortness of Identified cardiac views: Parasternal long axis Findings: Cardiac activity present no pericardial effusion normal ejection fraction Impression: - Normal limited cardiac exam Images were to permanent archive The study was technically adequate CPT: 33836 This study was performed by nv, and I personally interpreted all images/videos. Based on my clinical judgement, these images were [adequate/inadequate] and [did/did not] necessitate further imaging. Limited lung ultrasound A focused ultrasound exam of the pleural spaces was performed to evaluate for pneumothorax, pulmonary edema, pleural effusion and/or consolidation. The ultrasound was performed with the following indications, as noted in the H&P: Shortness of breath Identified structures: Bilateral thoracic cavities were examined. Findings: Lung sliding: - Present B-lines: - Negative right anterior and lung bases - Negative left anterior and lung bases Pleural effusion: - Absent bilaterally Impression: Unremarkable lung exam Images were to permanent archive The study was technically adequate CPT 60300-32 This study was performed by me, and I personally interpreted all images/videos. Based on my clinical judgement, these images were [adequate/inadequate] and [did/did not] necessitate further imaging. Critical Care Critical Care Time Critical Care Time: No
[2025-07-25 11:35] LABS: Hematocrit 46.2 % (42.0-52.0); Hemoglobin 15.2 g/dL (14.1-18.0); Immature Granulocytes % 1.1 %; Mean Corpuscular HGB Conc 32.9 g/dL (31.8-35.4); Mean Corpuscular Hemoglobin 29.4 pg (27.0-31.2); Mean Corpuscular Volume 89.4 fl (80-94); Nucleated Red Blood Cells % 0 %; Platelet Count 371 K/mm3 (142-424); Red Blood Count 5.17 M/mm3 (4.60-6.20); Red Cell Distribution Width-SD 47.6 fL; White Blood Count 14.1 K/mm3 (4.8-10.8)
[2025-07-25] MEDS: IPRATROPIUM/ALBUTEROL 3 ML NEB IH (11:39)
[2025-07-25 11:43] LABS: Albumin Level 5.3 g/dl (3.5-5.0); Chloride 101 mmol/L (98-107); Potassium 4.4 mmoL/L (3.5-5.1); Sodium 139 mmol/L (136-145)
[2025-07-25 11:46] LABS: Alanine Aminotransferase 25 U/L (12-78); Albumin/Globulin Ratio 1.8 (1.1-1.8); Alkaline Phosphatase 98 U/L (38-126); Anion Gap 15.4 mEq/L (5-15); Aspartate Amino Transferase 34 U/L (17-59); Bilirubin,Total 0.7 mg/dl (0.2-1.3); Calcium 9.7 mg/dl (8.4-10.2); Carbon Dioxide 27 mmol/L (22.0-30.0); Globulin 3.0 g/dL (1.3-3.2); Glucose 132 mg/dl (74-100); Total Protein,Serum 8.3 g/dl (6.3-8.2)
[2025-07-25 11:50] LABS: NT Pro Brain Natriuretic Pep. < 20.0 pg/mL (0-125)
[2025-07-25 12:01] LABS: Troponin I < 0.01 ng/ml (0.00-0.034)
[2025-07-25 12:08] LABS: Blood Urea Nitrogen 20 mg/dl (9-20); Creatinine Clearance Estimated 85 mL/min (50-200); Creatinine,Serum 1.80 mg/dl (0.66-1.25); Estimated Glomerular Filt Rate 41 ml/min (>60); GFR (African American) 49 ML/MIN (>60)
--- NOTE | 2025-07-25 12:54 | XR_ITS ---
PROCEDURE INFORMATION: Exam: XR Chest Exam date and time: 07/25/2025 1:01 PM Age: 45 years old Clinical indication: Shortness of breath; Additional info: SOA, smoker x 13 yrs TECHNIQUE: Imaging protocol: Radiologic exam of the chest. Views: 2 views. COMPARISON: CR Chest 07/15/2025 5:51 AM FINDINGS: Lungs: Stable calcified granulomas in the left lung base . No focal consolidation Pleural spaces: Unremarkable. No pleural effusion. No pneumothorax. Heart/Mediastinum: Unremarkable. No cardiomegaly. Bones/joints: Unremarkable. IMPRESSION: No acute findings.
[2025-07-25 13:29] LABS: Troponin I < 0.01 ng/ml (0.00-0.034)
== END 2025-07-25 13:49 | disposition home or self-care (01) ==
PROVIDERS: Emergency Provider Student in an Organized Health Care Education/Training Program; PCP Nurse Practitioner Family
DX: R06.02 Shortness of breath (principal); F17.210 Nicotine dependence, cigarettes, uncomplicated; I10 Essential (primary) hypertension
CPT/HCPCS: 71046; 80053; 82803; 83880; 84484; 85025; 93005; 99284; 99285

== ENCOUNTER 2025-08-18 07:11 | Emergency (ER) | payer OTHER, SELFPAY ==
[2025-08-18] VITALS (8 sets, daily range): BP systolic 122–161; BP diastolic 78–109; PULSE 72–117; RESP 14–20; TEMP 36.6–37.2; O2SAT 94–99; BMI 36.1
--- OUTSIDE RECORDS SUMMARY | 2025-08-18 07:18 | XMS_ITS | Encounter Summary ---
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
--- OUTSIDE RECORDS SUMMARY | 2025-08-18 07:18 | XMS_ITS | Clinical Summary ---
Author Organization Healthcare Address [address] [place] [address] Care Team Providers Care Mixer Tender Name Role Phone Pcp, No Primary Care [...] disease, or unspecified chronic kidney disease 09/04/2024 Gout 07/29/2023 Hypertension 07/29/2023 Proteinuria, unspecified 07/29/2023 Resolved Problems Problem Noted Date Diagnosed Date Resolved Date Arthritis 07/29/2023 08/01/2025 Acute kidney failure, unspecified 04/01/2023 06/06/2025 Encounters [...] [facility]-HIV Screening 1978 [facility]-Hepatitis C Screening 1978 [facility]-/Child/Adol SDOH Screenings 1978 [facility]- SDOH Screenings 02/23/1996 [...] Cancer Screening 2023 [facility]-Depression Screening 12/18/2024 12/19/2023 [id number] Vaccine (2 season) 2025 01/28/2021 [facility]-Influenza Vaccine (#1) 2025 [...] patient's age to complete this topic Insurance [facility] MEDICAID Care Teams Mixer Tender Relationship Specialty Start Date End Date Pcp, [place] [address] PCP - General Family Medicine 06/30/23
--- NOTE | 2025-08-18 07:28 | XR_ITS ---
FINAL REPORT CLINICAL HISTORY: Chest pain, shortness of breath COMPARISON: 07/25/2025 FINDINGS: PA and lateral views of the chest were obtained. The cardiac and mediastinal silhouettes are within normal limits. There are stable granulomas at the left lung base. The lungs are otherwise clear. There is no pleural effusion or pneumothorax. No acute osseous abnormality is identified. IMPRESSION: No radiographic evidence of acute cardiac or pulmonary disease. Reviewed, Interpreted and Dictated by Domi Oconnell MD Transcribed by Gianna Donnelly Authenticated and [facility]
--- NOTE | 2025-08-18 07:34 | ED_ITS ---
Discharge Plan Disposition Patient Disposition: Home, Self-Care Condition: Good Prescriptions Prescriptions: No Action lisinopril 10 mg tablet 10 mg PO DAILY buprenorphine-naloxone [Suboxone] 8-2 mg film 1 film buccal DAILY albuterol sulfate [Ventolin HFA] 90 mcg/actuation HFA aerosol inhaler 2 puff inhalation Q4-6H PRN albuterol sulfate 90 mcg/actuation HFA aerosol inhaler 2 inh inhalation QID PRN (Reason: shortness of breath or wheezing) 90 Days Qty: 8.5 2RF azithromycin 250 mg tablet See Rx Instructions .ROUTE .COMPLEX Qty: 6 0RF Rx Instructions: For 250 mg dose pack: take 500 mg today (day 1), then 250 mg for 4 days (days 2-5) prednisone 20 mg tablet 40 mg PO DAILY 5 Days Qty: 10 0RF Referrals Follow up/Referrals: Shawn Rahman APRN [Primary Care Provider, Medical] - See instructions Activity Restrictions/Add. Instructions Additional Instructions/Restrictions: Your labs and XR were normal. Please follow up with your primary care physician and return to the ER if symptoms return. You may consider backing off cigarettes as this can cause symptoms of shortness of breath. Additionally, your kidney function has consistently worsened since 2022. 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 Clinical Impressions Clinical Impression: Acute dyspnea Chest pain Qualifiers: Chest pain type: unspecified Qualified Code(s): R07.9 - Chest pain, unspecified Print Language Print Language: Bulgarian Discharge ED Provider: Contreras Segovia HPI General Chief Complaint: PAIN Stated Complaint: SOA, abd pain, body aches Time Seen by Provider: 08/18/25 07:19 History of Present Illness HPI narrative: This is a 45-year-old male patient, with past medical history of hypertension, tobacco abuse, and undiagnosed lung disease, who is presenting to the emergency department today for evaluation of chest pain and shortness of breath. Patient states that back in June of this year he had a very similar sensation where he felt short of breath and experienced some orthopnea. He was seen here in the emergency department twice and stated that his symptoms improved with inhalers. He brings with him an albuterol inhaler today. He tells me that this morning he woke up and had his morning cigarette and upon returning to bed he felt short of breath and as if he could not lay flat secondary to how significant his short of breath was. During this episode he describes pain located in the central aspect of his chest that was nonradiating in nature. He states that the symptoms have since resolved and he feels asymptomatic. He does tell me that since waking up this morning he has had a cough with production of phlegm. Related Data Home Medications ?Medication ?Instructions ?Recorded ?Confirmed lisinopril 10 mg tablet 10 mg PO DAILY 04/03/2312/15 albuterol sulfate 90 mcg/actuation 2 puff inhalation Q 4-6H PRN 10/18/23 12/27/23 aerosol inhaler (Ventolin HFA) buprenorphine 8 mg-naloxone 2 mg 1 film buccal DAILY 0 10/18/23 12/27/23 sublingual film (Suboxone) Previous Rx's ?Medication ?Instructions ?Recorded albuterol sulfate 90 mcg/actuation 2 inh inhalation QI D PRN shortness 10/18/23 aerosol inhaler of breath or wheezing 90 day s #8.5 grams azithromycin 250 mg tablet See Rx Instructions PO .COM PLEX #6 07/15/25 tabs prednisone 20 mg tablet 40 mg (2 x 20 mg) PO DAILY 5 days 07/15/25 #10 tabs Allergies Allergy/AdvReac Type Severity Reaction Status Date / Time Penicillins Allergy Intermediate Vomiting Verified 12/27/23 11:12 [facility] Disclaimer: The information contained in this section may have been updated after the patient was seen, as this information can be updated by other users. Medical History Dyspnea on exertion Smoking greater than 30 pack years HTN (hypertension) Tobacco use Family history of ischemic heart disease Dyspnea Chest pain Surgical History No history of previous surgery Family History Mother Diabetes Hypertension Heart attack Father Hypertension Social History Smoking Status: Current every day smoker tobacco type: cigarettes packs per day: 1 alcohol intake: never current occupational status: employed Travel in the last 8 weeks?: None Have you lived/traveled outside [place] in past 30 days?: No Contact w/someone who lives/traveled outside [place] past 30 days?: No Exposure to someone with infectious disease in past 14 days?: No Do you have a fever (greater than 100.4 F or 38 C)?: No Have you tested positive for COVID-19?: No Exposed to someone with COVID-19 in past 14 days?: No Do you have a sore throat?: No Do you have a cough?: No Do you have any weakness?: No Do you have any diarrhea?: No Are you experiencing any unusual bleeding?: No Do you have any muscle aches/pain?: No Do you have any abdominal pain?: No Are you experiencing loss of taste or smell?: No ROS Obtained: Yes Systems reviewed as appropriate & no additional complaints except as documented Physical Exam General General appearance: other (See MDM) Respiratory Respiratory exam: Present other (See MDM) Cardiovascular Cardiovascular exam: Present other (See MDM) Neurological Exam Neurological exam: Present other (See MDM) HEART Score HEART Score HEART Score assessment performed?: Yes History (anamnesis): Slightly suspicious ECG: Non-specific disturbance Age: 45-65 years Risk factors: 1-2 risk factors Troponin: </= normal limit HEART Score: 3 Critical Care Critical Care Time Critical Care Time: No Medical Decision Making Medical Records Medical records reviewed: Yes I reviewed the patient's medical records. Kermit Inquiry Pt receiving controlled substance: No Kermit was queried for this patient: No Vital Signs Vital Signs: 08/18/25 07:21 08/18/25 07:25 08/18/25 07:25 Temperature 98.9 F 98.9 F Temperature Source Oral Pulse Rate 117 H 114 H Pulse Rate [Right] 114 H Respiratory Rate 20 20 Blood Pressure 143/109 H 143/109 H Blood Pressure [Right Arm] 143/109 H Blood Pressure Mean [Right Arm] 120 Blood Pressure Source Blood Pressure Position 02 Sat by Pulse Oximetry 96 99 99 Oxygen Delivery Method Room Air 08/18/25 07:31 08/18/25 08:00 08/18/25 08:30 Temperature Temperature Source Pulse Rate 117 H 103 H 100 H Pulse Rate [Right] Respiratory Rate 17 14 Blood Pressure 143/99 H 140/101 H 161/100 H Blood Pressure [Right Arm] Blood Pressure Mean [Right Arm] Blood Pressure Source Blood Pressure Position 02 Sat by Pulse Oximetry 97 94 L 95 Oxygen Delivery Method Room Air Room Air Room Air 08/18/25 09:30 08/18/25 10:00 08/18/25 11:32 Temperature 98 F Temperature Source Temporal Artery Scan Pulse Rate 98 H 105 H 72 Pulse Rate [Right] Respiratory Rate 15 15 15 Blood Pressure 155/104 H 135/97 H 122/78 Blood Pressure [Right Arm] Blood Pressure Mean [Right Arm] Blood Pressure Source Automatic Cuff Blood Pressure Position Sitting 02 Sat by Pulse Oximetry 97 98 Oxygen Delivery Method Room Air Room Air Room Air Lab Data Labs: Lab Results 08/18/25 07:45: SARS-CoV-2 (PCR) Not detected, Influenza A Untype (PCR) Not detected, Influenza Type B (PCR) Not detected 08/18/25 07:50: WBC 10.8, RBC 5.31, Hgb 15.4, Hct 47.3, MCV 89.1, MCH 29.0, MCHC 32.6, RDW 13.8, Plt Count 410, MPV 8.6, Neut % (Auto) 77.7, Lymph % (Auto) 15.7, Greene % (Auto) 4.7, Eos % (Auto) 0.9, Baso % (Auto) 0.4, Neut # (Auto) 8.4 H, Lymph # (Auto) 1.7, Greene # (Auto) 0.5, Eos # (Auto) 0.1, Baso # (Auto) 0.0, D- Dimer 0.77 H, Sodium 142, Potassium 4.1, Chloride 103, Carbon Dioxide 27, Anion Gap 16.1 H, BUN 18, Creatinine 2.00 H, Estimated Creat Clear 78, Estimated GFR 36 L, Est GFR ( Amer) 44 L, Glucose 104 H, Calcium 9.3, Total Bilirubin 0.4, AST 29, ALT 22, Alkaline Phosphatase 100, Troponin I < 0.01, Total Protein 8.7 H, Albumin 4.8, Globulin 3.9 H, Albumin/Globulin Ratio 1.2, Lipase 72 08/18/25 10:35: Troponin I < 0.01 08/18/25 07:50 08/18/25 07:50 Response Orders (Tests/Meds): ED MEDICATIONS Discontinued Medications Generic Name Dose Route Start Last Admin Trade Name Freq PRN Reason Stop Dose Admin Aspirin 325 mg 08/18/25 07:28 08/18/25 07:54 Aspirin 325mg Tablet PO 08/18/25 07:29 325 mg ONCE ONE Administration ORDERS Category Date Time Status CXR 2 view (NOT portable) [XR chest 2V] Stat Exams 08/18/25 07:28 Completed CBC w/Auto Diff [Complete Blood Count Auto Diff] Stat Lab 08/18/25 07:50 Completed CMP [Comprehensive Metabolic Panel] Stat Lab 08/18/25 07:50 Completed D-Dimer Stat Lab 08/18/25 07:50 Completed Lipase Stat Lab 08/18/25 07:50 Completed Rapid PCR Covid and Flu A/B Stat Lab 08/18/25 07:45 Completed Troponin I Q3H Lab 08/18/25 10:35 Completed Troponin I Q3H Lab 08/18/25 13:30 Ordered Troponin I Stat Lab 08/18/25 07:50 Completed MDM Narrative Medical Decision Narrative: In summary, this is a 45-year-old male patient who is presenting to the emergency department today for evaluation of chest pain and shortness of breath that occurred after smoking a cigarette this morning and has since resolved. He is also experiencing a cough with production of phlegm. Comorbidities include hypertension, tobacco abuse, and undiagnosed lung disease for which he uses an albuterol inhaler. I have reviewed prior notes which show that the patient was seen by the cardiology clinic back in 2022 and had a stress test that revealed no evidence of myocardial ischemia. On initial evaluation of the patient they were resting comfortably in no acute distress and nontoxic in appearance. They are hemodynamically stable, saturating well room air, and are neurologically intact. On physical examination he is appropriately alert and interactive with a GCS of 15. His heart and lungs are clear to auscultation bilaterally without wheezes, rales, rhonchi, or stridor. He has no abdominal tenderness to palpation. He has no lower extremity pitting edema or erythema. Differential diagnosis includes ACS/GA, pulmonary embolism, pneumonia, congestive heart failure, reactive airway disease, COVID, flu, RSV, among others. Workup was initiated with hematologic labs as well as an EKG and a two-view chest x-ray. Initial inventions included 325 mg of aspirin EKG was obtained and personally interpreted by me and demonstrates normal sinus rhythm at a rate of 98 bpm, normal axis, no ID prolongation, narrow QRS, no QTc prolongation. No ST elevation. There is an incomplete right bundle branch block pattern as well as subtle T wave inversions in lead III that are present on prior EKGs. Labs were personally turbid by me and demonstrate no evidence of leukocytosis, no anemia, no significant electrolyte derangement. His troponin and delta troponin are less than 0.01 which suggest against myocardial ischemia. COVID and flu swabs are negative but suggest against acute viral pathology. Additionally, the patient's D-dimer is 0.77 which rules out pulmonary embolus by years criteria. Additionally, the patient's creatinine is 2 which has risen quite consistently over the past 2 years. 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 Chest x-ray was personally turbid by me and demonstrates no lobar consolidation or pleural effusion. Official radiology read is in agreement and states that there is no acute abnormality. Patient has remained asymptomatic throughout his stay in the emergency department. My suspicion is that this episode of chest pain and shortness of breath could have been related to smoking cigarettes this morning. We have discussed follow-up with his primary care physician and return to the emergency department if he has new or worsening symptoms. At this time all questions have been answered and all parties are agreeable with the decision to discharge home
--- NOTE | 2025-08-18 07:35 | ECG_ITS ---
APPROVED REPORT Exam: Resting ECG HR:98 bpm ECG Measurements Heart Rate 98 AXES MA 165 P 47 QRSd 94 QRS 34 QT 332 T 25 QTc 387 Conclusion Normal sinus rhythm Normal axis Normal intervals No STEMI Electronically signed by : Contreras Segovia, 08/18/2025 16:32:49
[2025-08-18 07:49] LABS: Coronavirus 19, PCR Not Detected (NotDetected); Influenza A, PCR Not Detected (NotDetected); Influenza B, PCR Not Detected (NotDetected)
[2025-08-18] MEDS: ASPIRIN 325MG TABLET 325 MG PO (07:54)
[2025-08-18 07:57] LABS: Hematocrit 47.3 % (42.0-52.0); Hemoglobin 15.4 g/dL (14.1-18.0); Immature Granulocytes % 0.6 %; Mean Corpuscular HGB Conc 32.6 g/dL (31.8-35.4); Mean Corpuscular Hemoglobin 29.0 pg (27.0-31.2); Mean Corpuscular Volume 89.1 fl (80-94); Nucleated Red Blood Cells % 0 %; Platelet Count 410 K/mm3 (142-424); Red Blood Count 5.31 M/mm3 (4.60-6.20); Red Cell Distribution Width-SD 44.6 fL; White Blood Count 10.8 K/mm3 (4.8-10.8)
[2025-08-18 08:04] LABS: Albumin Level 4.8 g/dl (3.5-5.0); Chloride 103 mmol/L (98-107); Potassium 4.1 mmoL/L (3.5-5.1); Sodium 142 mmol/L (136-145)
[2025-08-18 08:06] LABS: Blood Urea Nitrogen 18 mg/dl (9-20); Creatinine Clearance Estimated 78 mL/min (50-200); Creatinine,Serum 2.00 mg/dl (0.66-1.25); Estimated Glomerular Filt Rate 36 ml/min (>60); GFR (African American) 44 ML/MIN (>60)
[2025-08-18 08:07] LABS: Alanine Aminotransferase 22 U/L (12-78); Albumin/Globulin Ratio 1.2 (1.1-1.8); Alkaline Phosphatase 100 U/L (38-126); Anion Gap 16.1 mEq/L (5-15); Aspartate Amino Transferase 29 U/L (17-59); Bilirubin,Total 0.4 mg/dl (0.2-1.3); Calcium 9.3 mg/dl (8.4-10.2); Carbon Dioxide 27 mmol/L (22.0-30.0); Globulin 3.9 g/dL (1.3-3.2); Glucose 104 mg/dl (74-100); Lipase 72 U/L (23-300); Total Protein,Serum 8.7 g/dl (6.3-8.2)
[2025-08-18 08:12] LABS: D-Dimer 0.77 ug/mL (0.0-0.5)
[2025-08-18 08:23] LABS: Troponin I < 0.01 ng/ml (0.00-0.034)
[2025-08-18 11:10] LABS: Troponin I < 0.01 ng/ml (0.00-0.034)
== END 2025-08-18 11:37 | disposition home or self-care (01) ==
PROVIDERS: Emergency Provider Student in an Organized Health Care Education/Training Program; PCP Nurse Practitioner Family
DX: R07.9 Chest pain, unspecified (principal); R06.02 Shortness of breath; F17.210 Nicotine dependence, cigarettes, uncomplicated; I10 Essential (primary) hypertension
CPT/HCPCS: 71046; 80053; 83690; 84484; 85025; 85378; 87636; 93005; 99285